=== PATIENT | female | born 1935 | race Caucasian/White ===

== ENCOUNTER 2024-08-28 18:59 | Inpatient (IN) | payer OTHER, SELFPAY ==
[2024-08-28 15:58] VITALS: BMI 27.1
[2024-08-28 16:05] VITALS: BP 131/70
[2024-08-28 16:19] LABS: Hematocrit 31.9 % (37.0-47.0); Hemoglobin 10.3 g/dL (12.0-16.0); Mean Corp Hgb Conc. 32.3 g/dL (33.0-37.0); Mean Corpuscular Hgb 27.6 pg (27.0-31.0); Mean Corpuscular Volume 85.5 fL (81.0-99.0); Red Blood Cell Count 3.73 10^6/uL (4.20-5.40); Red Cell Dist. Width 17.2 % (11.5-14.5); White Blood Cell Count 13.9 10^3/uL (4.8-10.8)
[2024-08-28 16:45] LABS: Normal RBC Morphology Yes; Platelet Count 95 10^3/uL (130-400); Platelets Checked Yes; Total Cells Counted 100
[2024-08-28 16:49] LABS: Absolute Neutrophils -Man Diff 10.4 10^3/uL (1.4-6.5); Band Neutrophils 1 % (0-3); Lymphocytes 10 % (20-51); Monocytes 14 % (2-9); Segmented Neutrophils 74 % (42-75)
[2024-08-28 16:50] LABS: Nucleated Red Blood Cells 1 (-)
[2024-08-28 16:55] LABS: ALT (SGPT) 17 U/L (0-35); AST (SGOT) 43 U/L (14-36); Albumin 3.5 g/dl (3.5-5.0); Alkaline Phosphatase 117 U/L (38-126); Blood Urea Nitrogen 20 mg/dl (7-17); Calcium 8.4 mg/dl (8.4-10.2); Carbon Dioxide 26 mmol/L (22-30); Chloride 99 mmol/L (98-107); Estimated Creatinine Clearance 40 ml/min; Glucose 113 mg/dl (70-99); Potassium 3.7 mmol/L (3.5-5.1); Sodium 137 mmol/L (135-145); Total Bilirubin 2.8 mg/dl (0.2-1.3); Total Protein 6.3 g/dl (6.3-8.2); eGFR > 60.00
--- NOTE | 2024-08-28 16:56 | ED.GENMED ---
History of Present Illness
General
Chief Complaint: Dizziness
Time Seen by Provider: 08/28/24 16:56
History of Present Illness
History of Present Illness:
TIME OF INITIAL ENCOUNTER: 5 PM
HPI: Patient presents with worsening vertigo that feels unlike prior episodes of vertigo. Is been ongoing for the last few days. She had some cough recently as well. She had a recent mole excision from her forehead with resultant facial
ecchymosis.
EXAM:
GENERAL: Well appearing in no distress
HEENT: Extensive bilateral infraorbital ecchymosis related to recent forehead procedure
CARDIOVASCULAR: No murmurs, normal heart rate, slightly irregular rhythm, No chest wall tenderness
PULMONARY: No respiratory distress, breath sounds are fairly clear but occasional rhonchi noted
ABDOMEN: Soft with no peritoneal signs, no tenderness
NEUROLOGIC: Excellent strength all extremities, slightly impaired finger-nose bilaterally
PSYCHIATRIC: Appropriate mental status, normal insight and judgement
EXTREMITIES: Nontender, no edema, moves all extremities equally
SKIN: As above
NUMBER AND COMPLEXITY OF PROBLEMS ADDRESSED AT THE ENCOUNTER
� Chronic conditions affecting care: A-fib, CHF, high blood pressure, CKD
� Acute Exacerbation and/or Progression of Chronic Illness: This is an acute problem
� Differential Diagnosis includes: Nonspecific vertigo, dehydration, infection
AMOUNT AND/OR COMPLEXITY OF DATA TO BE REVIEWED AND ANALYZED
� I performed an independent evaluation of and my interpretation is:
EKG: A-fib 75, nonspecific ST abnormality
CT: CT head negative acute
X-rays: Chest x-ray shows abnormality at left base
Laboratory Studies: White count 13.9 hemoglobin 10.3, total bili chronically elevated
Other:
� Review of other/old records: Patient was admitted last year with acute exacerbation of heart failure and was also found to have sepsis due to UTI
� Clinical information was obtained by an independent historian: None needed
� Prescriptions/Medications Considered but not given:
� Further testing considered but not performed:
RISK OF COMPLICATIONS AND/OR MORBIDITY OR MORTALITY OF PATIENT MANAGEMENT
� Social determinants of health affecting care: Lives at home with daughter
� Discussion with other providers: Hospitalist for admission
� Escalation of care including admission/observation vs risk of discharge considered: Patient presents with dizziness which is different than her chronic type of vertigo. She is in A-fib but states that she was taken off of
Coumadin by Dr. Lincoln due to ulcers.
ANY OTHER UPDATES:
6:15 PM: On reassessment she still feels horrible (however does not look that bad). White count is elevated, chest x-ray is abnormal. Will plan admission for IV antibiotics and further assessment.
Past History
Past History
ED Past Medical History: Arrthythmia (Atrial fibrillation), HTN, Hypercholesterolemia and Other (DVT, GIB, ulcerative colitis, chronic kidney disease, anemia)
ED Past Surgical History: Bowel resection
Social History
Tobacco: Non-smoker
Alcohol: None
Living: with family
Employment: Retired
Family History
Family History: Other (pancreatic cancer, CHF)
Phy Exam
Physical Exam
Physical Exam:
See HPI
Course
Orders/Labs/Results
Orders:
Orders
08/28/24 16:02
Electrocardiogram (*1) Urgent
Reason for Study: Vertigo / Dizzy
EKG- Treatment ONCE
08/28/24 16:04
CBC/With Diff [Complete Blood Count/With Diff] Urgent
Comprehensive Metabolic Panel Urgent
Manual Differential Urgent
08/28/24 16:10
CT Head W/o Iv Contrast Urgent
Comment:
Reason For Exam: dizziness
08/28/24 17:07
Urinalysis Reflex To Culture Urgent
CR Chest - 2 Views Urgent
Comment:
Reason For Exam: sob high wbc
08/28/24 18:15
Azithromycin 500 mg/250 ml [Zithromax Infusion] 500 mg in 250 ml IV NOW
CefTRIAXone [Rocephin] 1,000 mg IV NOW STA
08/28/24 18:26
Procalcitonin Routine
PCT Algorithmm Indication: Respiratory
Abnormal Lab Results
08/28/24
16:04
WBC 13.9 H 10^3/uL
(4.8-10.8)
RBC 3.73 L 10^6/uL
(4.20-5.40)
Hgb 10.3 L g/dL
(12.0-16.0)
Hct 31.9 L %
(37.0-47.0)
MCHC 32.3 L g/dL
(33.0-37.0)
RDW 17.2 H %
(11.5-14.5)
Plt Count 95 L 10^3/uL
(130-400)
Abs Neuts (Manual) 10.4 H 10^3/uL
(1.4-6.5)
Lymphocytes (Manual) 10 L %
(20-51)
Monocytes (Manual) 14 H %
(2-9)
BUN 20 H mg/dl
(7-17)
Glucose 113 H mg/dl
(70-99)
Total Bilirubin 2.8 H mg/dl
(0.2-1.3)
AST 43 H U/L
(14-36)
08/28/24 16:04
08/28/24 16:04
Vital Signs
Initial and Last Documented VS:
Initial Vital Signs
Temp
99.2 F
08/28/24 15:58
Last Documented Vital Signs
Temp Pulse Resp BP Pulse Ox
99.2 F 75 17 131/70 97
08/28/24 15:58 08/28/24 18:00 08/28/24 18:00 08/28/24 16:05 08/28/24 18:00
*Critical Care Note
Total Time (30-74mins, 75-104mins- exclusive of procedures): Not Applicable
ED Attending Note
-
Portions of this chart may have been created with voice recognition software.� Occasional wrong word or��sound alike� substitutions may have occurred due to the inherent limitations of voice recognition software.
Discharge Plan
Departure
Patient Disposition: Admit
Date of Disposition: 08/28/24
Time of Disposition: 18:19
Presentation/result/management discussed w/ accepting MD/DO: Hospitalist
Discharge Problem:
Pneumonia
Prescriptions:
No Action
mercaptopurine [Purinethol] 50 MG tablet
50 mg PO BID
simvastatin 40 MG tablet
40 mg PO QPM
acetaminophen 325 mg Tablet
650 mg PO Q8HPRN PRN (Reason: mild pain)
metoprolol succinate 100 mg Tablet Extended Release 24 Hr
100 mg PO QPM
aspirin 81 mg Tablet,Delayed Release (Dr/Ec)
81 mg PO DAILY
metoprolol succinate 25 mg Tablet Extended Release 24 Hr
50 mg PO DAILY
mesalamine 1.2 gram Tablet,Delayed Release (Dr/Ec)
1.2 g PO BID
polyethylene glycol 3350 17 gram Powder In Packet
17 g PO DAILYPRN PRN (Reason: constipation) Qty: 0 0RF
furosemide 20 mg Tablet
20 mg PO DAILY Qty: 30 0RF
amoxicillin-pot clavulanate 875-125 mg tablet
1 tab PO BID Qty: 20 0RF
simethicone 180 mg capsule
180 mg PO BID PRN (Reason: abdominal distention) Qty: 20 0RF
Referrals:
Tony Carrillo MD [Family Provider] -
Interventions
Interventions:
*Risk Screen - Suicide Last Done: 08/28/24 15:58
*General Assessment Last Done: 08/28/24 15:58
*Neglect/Abuse Screening Last Done: 08/28/24 15:58
ED- Fall Risk Assessment Last Done: 08/28/24 15:58
*ED COVID-19 Vaccine History Last Done: 08/28/24 15:58
ED- Neurological Assessment Last Done: 08/28/24 15:58
Discharge Date and Time
Print Language: BELARUSIAN
[2024-08-28 18:00] VITALS: BP 125/56
[2024-08-28] MEDS: ZITHROMAX INFUSION 250 IV (18:34)
[2024-08-28] MEDS: ROCEPHIN 1000 MG IV (18:34)
--- NOTE | 2024-08-28 18:47 | HPS.HSE ---
Family Physician
-
Family Physician: Tony Carrillo
Chief Complaint
-
SoB, cough and dizziness
History of Present Illness
89M HX chr HFpEF, Klebsiella PNA with sepsis, Prx AF , not on AC due to PUDz, chronic anemia . chr thrombocytopenia seen at ER evalaution of cough, sob and dizziness .
- Recent derm procedure on forehead with lots of facial ecchymosis
- generally feel unwell NOS
- WBC 13.9
- CXR suggests small L pleural effusion w/ atelectasis vs pneumonia,
Medical History
Past Medical History
Past Medical History: Reports Other (As per the HPI)
Past Surgical History: Reports Other
Additional Past Surgical History:
Sigmoidectomy
Social History
Tobacco: Non-smoker
Alcohol: None
Drug: None
Family History
Family History: Cancer and Other (Pneumonia)
Allergies / Home Medications
Allergies reflects when Allergies were last updated in [employer].
Home Medications with original date entered in [employer]
Allergy/Medication List:
Allergies
Allergy/AdvReac Type Severity Reaction Status Date / Time
No Known Allergies Allergy Verified 12/23/22 10:41
Home Medications
mercaptopurine 50 mg tablet (Purinethol) 50 mg PO BID Ulcerative Colitis 03/03/14
simvastatin 40 mg tablet 40 mg PO QPM High cholesterol 10/10/17
acetaminophen 325 mg tablet 650 mg PO Q8HPRN PRN mild pain 01/02/23
aspirin 81 mg tablet,delayed release 81 mg PO DAILY Blood clot prevention/tx 01/02/23
mesalamine 1.2 gram tablet,delayed release 1.2 g PO BID Ulcerative Colitis 01/02/23
metoprolol succinate 100 mg tablet,extended release 24 hr 100 mg PO QPM Heart disease/condition 01/02/23
metoprolol succinate 25 mg tablet,extended release 24 hr 50 mg PO DAILY Heart disease/condition 01/02/23
Review of Systems
-
Constitutional: Reports No Symptoms
EENT: Reports No Symptoms
Respiratory: Reports Cough and Trouble Breathing
Cardiac: Reports No Symptoms
Abdomen/GI: Reports No Symptoms
: Reports No Symptoms
Musculoskeletal: Reports No Symptoms
Skin: Reports No Symptoms
Neurological: Reports Dizzy
Endocrine: Reports No Symptoms
Hematologic/Lymphatic: Reports No Symptoms
Psych: Reports No Symptoms
Physical Exam
Vital Signs
Vital Signs
Temp Pulse Resp BP Pulse Ox
99.2 F 71 16 125/56 96
08/28/24 15:58 08/28/24 18:45 08/28/24 18:45 08/28/24 18:00 08/28/24 18:45
Physical Exam
General: Well Developed, Well Nourished and No Apparent Distress
HEENT: NormoCephalic, Moist mucous membranes, Atraumatic and Other (Recent derm procedure on forehead with lots of facial ecchymosis)
Respiratory: Clear
Cardiac: S1/S2 and Regular Rhythm; No Murmur or Rub
GI: Soft, Non Tender, Non Distended and Normal Bowel Sounds; No Organomegaly
Rectal: Deferred by Provider
Musculoskeletal: No Clubbing, No Cyanosis and No Edema
Skin: No Rash
Neuro: Nonfocal/grossly intact
Laboratory Results
-
08/28/24 16:04
08/28/24 16:04
Laboratory Results
Total Bilirubin 2.8 mg/dl (0.2-1.3) H 08/28/24 16:04
AST 43 U/L (14-36) H 08/28/24 16:04
ALT 17 U/L (0-35) 08/28/24 16:04
Alkaline Phosphatase 117 U/L (38-126) 08/28/24 16:04
Data Reviewed
-
Diagnostic Radiology: Report Reviewed by me
CT Scan: Report Reviewed by me
Lab Data: Labs Reviewed by me
Old Records: Reviewed
Impression/Plan
-
Data
WBC 13.9
Nl Cr
TB 2.8
Pending PCT
CXR suggests small L pleural effusion w/ atelectasis vs pneumonia
HCT: There are no focal or acute intracranial abnormalities. There is moderate diffuse cortical and cerebellar atrophy
Last hospitalist admission:
DATE OF ADMISSION: 02/15/2023 - DATE OF DISCHARGE: 02/20/2023
DISCHARGE DIAGNOSES:
1. Acute heart failure with preserved ejection fraction.
2. Klebsiella pneumoniae sepsis due to urinary tract infection.
3. Paroxysmal atrial fibrillation.
4. Hypokalemia.
5. Hyponatremia.
6. Acute on chronic anemia.
7. Chronic thrombocytopenia.
ASSESSMENT & PLAN
Presumed Lt basilar PNA likely CAP
Cough and SoB
Leucocytosis
HX Klebsiella Pneumoniae sepsis due to UTI
- check PCT
- agree with IV CFTX and PO Azithromycin
- Mucinex
- O2 as needed
S/P Dermatological surgery - large skin excision for skin CA ? few days ago
[place] HX Facial skin lesion - suspicious for skin CA
Recently seen by Dermatology
HX Ulcerative colitis status post colectomy/sigmoid resection
- c/w Mercaptopurine and mesalamine
Bicytopenia( Anemia , chr thrombocytopenia)
Chronic normocytic anemia Baseline hemoglobin around 9s , currently low 10s
Last colonoscopy was 2020 showing polyps and diverticulosis.
- stable
- Monitor CBC
Chronic thrombocytopenia -counts have been low since December 2022
- Possibly related to mercaptopurine
- Monitor for now.
HX chr HFpEF
02/17/23 ECHO: LVEF 65%, moderate MR, small PFO.
- c/w [employer]OM[employer]NAGER PO frusemide , Metoprolol
HX Paroxysmal atrial fibrillation not on anticoagulation due to history of GI bleed,
HX Peptic Ulcer Disease
HX DVT
-No anticoagulation at home due to history of GI bleed
Essential hypertension-Stable
-Continue home long-acting beta-yves
Hyperlipidemia
- c/w statin
DVT Px: SQH
Code: DNR confirmed by patient in the presence of RN
IP TLM
[2024-08-28 19:05] VITALS: BP 107/48
[2024-08-28 19:15] VITALS: BP 122/72; BMI 26.8
[2024-08-28 19:34] VITALS: BMI 27.1
[2024-08-28 20:00] LABS: Procalcitonin 0.06 ng/ml (0.0-0.25)
[2024-08-28 20:41] LABS: Urine Albumin Negative (Neg - Trace); Urine Bilirubin Negative (Negative); Urine Character Slightly Cloudy (Clear); Urine Color Yellow; Urine Glucose Negative (Negative); Urine Ketone Negative (Negative); Urine Leukocyte 2+ (Negative); Urine Nitrite Negative (Negative); Urine Occult Blood Negative (Negative); Urine Urobilinogen Negative (Neg - 1+)
[2024-08-28 20:47] LABS: Urine Bacteria Few (Negative); Urine Squamous Cell 26-30 /LPF (Few)
[2024-08-28 20:48] LABS: Urine Red Blood Cell 0-2 /HPF (0-2); Urine White Cell 30-40 /HPF (0-5)
[2024-08-28] MEDS: MUCINEX 600 MG PO (22:03)
[2024-08-28] MEDS: PURINETHOL 50 MG PO (22:03)
[2024-08-28] MEDS: TOPROL XL 100 MG PO (22:03)
[2024-08-28] MEDS: HEPARIN 5000 UNITS SC (22:04)
[2024-08-28 23:18] VITALS: BP 147/62
[2024-08-29] VITALS (7 sets, daily range): BP systolic 89–150; BP diastolic 47–67; PULSE 79; O2SAT 97; BMI 26.4
[2024-08-29] MEDS: TYLENOL 650 MG PO ×2 (00:07→23:11)
[2024-08-29] MEDS: MUCINEX 600 MG PO ×2 (07:52→20:08)
[2024-08-29] MEDS: PURINETHOL 50 MG PO ×2 (07:52→20:08)
[2024-08-29] MEDS: LASIX 20 MG PO (07:52)
[2024-08-29] MEDS: ZITHROMAX 500 MG PO (07:52)
[2024-08-29] MEDS: TOPROL XL 50 MG PO (07:52)
[2024-08-29] MEDS: ASPIR LOW (ENTERIC COATED) 81 MG PO (07:52)
[2024-08-29] MEDS: HEPARIN 5000 UNITS SC ×2 (07:53→20:06)
[2024-08-29 09:34] LABS: Hematocrit 32.1 % (37.0-47.0); Hemoglobin 10.2 g/dL (12.0-16.0); Mean Corp Hgb Conc. 31.8 g/dL (33.0-37.0); Mean Corpuscular Hgb 27.5 pg (27.0-31.0); Mean Corpuscular Volume 86.5 fL (81.0-99.0); Platelet Count 79 10^3/uL (130-400); Red Blood Cell Count 3.71 10^6/uL (4.20-5.40); Red Cell Dist. Width 17.4 % (11.5-14.5); White Blood Cell Count 9.9 10^3/uL (4.8-10.8)
[2024-08-29 09:49] LABS: Blood Urea Nitrogen 17 mg/dl (7-17); Calcium 8.4 mg/dl (8.4-10.2); Carbon Dioxide 27 mmol/L (22-30); Chloride 100 mmol/L (98-107); Estimated Creatinine Clearance 36 ml/min; Glucose 136 mg/dl (70-99); Potassium 3.3 mmol/L (3.5-5.1); Sodium 140 mmol/L (135-145); eGFR 53.85
[2024-08-29] MEDS: KCL 40 MEQ PO (10:34)
[2024-08-29] MEDS: ROCEPHIN 1000 MG IV (10:34)
[2024-08-29] MEDS: STERILE WATER FOR INJECTION 10 ML IV (10:34)
[2024-08-29] MEDS: VITAMIN B-12 1000 MCG PO (11:54)
--- NOTE | 2024-08-29 12:55 | PTOTSP ---
SPEECH THERAPY SWALLOW EVALUATION:
Patient exhibits grossly functional oropharyngeal swallow at this time. Patient currently admitted with left basilar pneumonia. Endorsed dysphagia symptoms including occasional coughing with ice water when taking pills, ~25 lb weight loss (pt
reported as intentional), and history of pnuemonia ~1 year ago. Patient with mildly hyponasal vocal quality, suspicious for velopharyngeal dysfunction. Patient without significant pre-disposing dysphagia risk factors. No history of ST at or
otherwise. No overt signs or symptoms of aspiration at this time. Stable respiratory status at this time (room air). Recommend Regular texture diet, thin liquids. Medications whole with liquid as best tolerated. Given mild hyponasal quality, weight
loss, and repeat pneumonia, unable to rule out dysphagia at this time. Consider instrumental assessment of swallowing (VSE) if concern for aspiration. Recommend ST to follow at the acute care level to monitor diet tolerance, monitor CXR and labs,
determine indication for VSE as warranted, and provide continued diagnostic swallow therapy as appropriate.
RECOMMEND:
1) Regular texture diet, thin liquids
2) Medications whole with liquid as best tolerated
3) General aspiration precautions
4) Consider instrumental assessment of swallowing (VSE) if concern for aspiration
4) ST to follow at the acute care level
--- NOTE | 2024-08-29 15:22 | CM ---
Met with patient and her daughter at the bedside; initial assessment completed
Pharmacy verified: [facility] @ [address] [facility], [place], [place]
Patient lives in a Bi[employer] home; her daughter lives with her; 3 steps to enter; 6 steps to living area; railings present; patient's bathroom has tub w/shower; raised toilet seat w/handrails; laundry room on the lower level
PLOF: patient reports that she is independent with personal care; does not get into the tub unless someone is present to assist; ambulates with RW always; patient manages her medication and does the cooking; daughter does the other heavy equipment rental associate
Does not drive
NO other DME
SNF stay 01/2023 @ [facility]; and past home health w/[facility]
Daughter will transport home
Bruising on face from recent procedure; had a lesion removed from forehead
Plan: Discharge dispostion to be determined pending hospital course. If Home Health is recommended, VNA is preference; as requested, will keep daughter/primary contact in the communication loop for post acute decisions
--- NOTE | 2024-08-29 16:08 | PTOTSP ---
pt currently demonstrates ability to complete simple ADLs, functional transfers, ambulation with supervision to no assistance. no acute OT needs identified at this time, will sign off.
--- NOTE | 2024-08-29 17:12 | W.PN.HOSP.TC ---
Addendum entered and electronically signed by Kailash Ivory MD 08/30/24 16:40:
I saw and evaluated the patient. I reviewed the resident�s note and agree with findings and plan as documented in the resident�s note.
Left-sided, required pneumonia -patient cough has improved, some phlegm production. Not hypoxic. Was given Rocephin and azithromycin in hospital, continue on Omnicef and azithromycin at discharge.
Thrombocytopenia/anemia- Likely from mercaptopurine use - provided for UC treatment by GI at [facility]
Mohs surg -right forehead Mohs surgery. bilateral maria t-orbital ecchymosis - no fall ,patient stated its from mohs surg?
Patient cleared to be discharged home today.
Original Note:
Today's Communication/Plan
-
Rpt CXR in am
If stable consider discharge
Assessment / Plan
Assessment / Plan
89-year-old female with cough and dizziness
Mohs surgery on face with ecchymosis around the eyes
Cardiovascular system S1-S2 appreciated
Mostly clear to auscultation
# Cough shortness of breath and left basilar pneumonia on x-ray vs atelectasis versus acute bronchitis
Check PA lateral chest x-ray tomorrow stop antibiotics if not needed
IV ceftriaxone and Zithromax
Mucolytic's
Not on any oxygen at present
Speech eval noted- No aspiration
Follow clinically
Add incentive spirometry
# Hypokalemia-replace
# Abnormal urine analysis-contaminated specimen versus true UTI-antibiotic should cover
# Recent moh's surgery on the face
# History of ulcerative colitis status post colectomy/sigmoid resection
Continue mercaptopurine and mesalamine
# Anemia and thrombocytopenia
# Chronic heart failure with preserved ejection fraction
Echo 02/17/2023-EF 65%, moderate MR, small PFO, mild concentric LVH, mild TR, pulmonary artery pressure 40 to 45 mmHg
Continue beta-yves, Lasix
# CKD stage III
# Hypertension-continue beta-blockers
# Hyperlipidemia-continue statin
# Paroxysmal atrial fibrillation-history of PVI ablation 2016. Not on anticoagulation because of GI bleed history and likely from anemia and thrombocytopenia
# Peptic ulcer disease
# Cholelithiasis
# History of DVT-not on anticoagulation
# History of diverticulitis with colon resection
# arthritis/DJD's/Osteoporosis/DJD lumbar spine
# Vertigo
# Ex-smoker
# DVT prophylaxis-heparin
# DNR
Discussed with nursing at bedside
Called patient's daughter-went to message
Called son who wanted me to talk to his I updated [id number] regarding patient's condition. Also gave a heads up that she may be discharged as early as tomorrow
Anticipated Discharge: Within 24 hours
Subjective/Interval History
-
Date of Service: August 29, 2024
Objective Data
-
Labs:
Laboratory Results
08/29/24
08:58
WBC 9.9
Hgb 10.2 L
Hct 32.1 L
Plt Count 79 L
Sodium 140
Potassium 3.3 L
Chloride 100
Carbon Dioxide 27
BUN 17
Creatinine 1.0
Glucose 136 H
Calcium 8.4
Vital Signs:
Vital Signs
Temp Pulse Resp BP Pulse Ox
98.0 F 79 16 98/67 97
08/29/24 15:44 08/29/24 15:44 08/29/24 15:44 08/29/24 15:44 08/29/24 15:44
I&O
08/28/24 08/29/24 08/30/24
06:59 06:59 06:59
Intake Total 240 / 240
Output Total 100 / 100
Balance 140 / 140
[2024-08-29] MEDS: TOPROL XL 100 MG PO (18:10)
[2024-08-29] MEDS: LIPITOR 20 MG PO (18:14)
[2024-08-30 03:00] VITALS: BP 135/58
[2024-08-30 06:00] VITALS: BMI 26.8
--- NOTE | 2024-08-30 07:38 | W.PN.HOSP.TC ---
Today's Communication/Plan
-
Assessment / Plan
Assessment / Plan
Ms. Fara Abraham is an 89yoF h HFpEF (60-65%), paroxysmal afib, HTN, HLD, CKD stage 3b admitted 08/28 for pneumonia.
Cough shortness of breath and left basilar pneumonia on x-ray vs atelectasis vs acute bronchitis
- Check PA lateral chest x-ray tomorrow stop antibiotics if not needed
- IV ceftriaxone and Zithromax
- Mucolytics
- Speech eval - no signs of aspiration
- incentive spirometer
- transition to PO abx for dc - 7 day course total for immunocompromised state
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
- immature cells on cbc
- known side effect of mercaptopurine for UC
- monitor bone marrow suppression outpatient
Hypokalemia
- replete
CKD stage III
Abnormal urine analysis
- contaminated specimen
Recent mohs surgery on the face
History of ulcerative colitis status post colectomy/sigmoid resection
Peptic ulcer disease
Diverticulitis s/p resection
Cholelithiasis
- Continue mercaptopurine and mesalamine
- not tolerating OAC
Anemia
thrombocytopenia
- stable
- monitor CBC
Chronic heart failure with preserved ejection fraction
- Echo 02/17/2023-EF 60-65%, moderate MR, small PFO, mild concentric LVH, mild TR, pulmonary artery pressure 40 to 45 mmHg
- Continue beta-yves, Lasix
HTN / HLD
- cont beta blockers, statin
Paroxysmal atrial fibrillation
- hx PVI ablation 2015
- Not on anticoagulation because of GI bleed history and likely from anemia and thrombocytopenia
arthritis/DJD's/Osteoporosis/DJD lumbar spine
Vertigo
- fall precautions
DVT prophylaxis
- Hx DVT
- heparin
Code status: DNR
Diet: cholesterol lowering
Anticipated Discharge: Today
Subjective/Interval History
-
Date of Service: August 30, 2024
Ms. Fara Abraham is an 89yoF pmh HFpEF (60-65%), paroxysmal afib, HTN, HLD, CKD stage 3b admitted 08/28 for pneumonia. Overall, feels better. Cough improving, productive of a clear mucus. No SOB, fever, chills.
Objective Data
-
Labs:
Laboratory Results
08/30/24
06:00
WBC Pending
Hgb Pending
Hct Pending
Plt Count Pending
Sodium Pending
Potassium Pending
Chloride Pending
Carbon Dioxide Pending
BUN Pending
Creatinine Pending
Glucose Pending
Calcium Pending
Total Bilirubin Pending
AST Pending
ALT Pending
Alkaline Phosphatase Pending
Vital Signs:
Vital Signs
Temp Pulse Resp BP Pulse Ox
97.8 F 60 18 135/58 96
08/30/24 03:00 08/30/24 03:00 08/30/24 03:00 08/30/24 03:00 08/30/24 03:00
I&O
08/29/24 08/30/24 08/31/24
06:59 06:59 06:59
Intake Total 240 / 240 1440 / 1440
Output Total 100 / 100
Balance 140 / 140 1440 / 1440
Review of Systems
-
History Source: Patient
All other systems: Reviewed and negative
Constitutional: Reports No Symptoms
EENT: Reports No Symptoms Reported
Respiratory: Reports Cough; Denies Hemoptysis or Trouble Breathing
Cardiac: Reports No Symptoms
Abdomen/GI: Reports No Symptoms
Genitourinary: Reports No Symptoms
Neuro: Reports No Symptoms
Hematologic / Lymphatic: Reports Bleeding and Bruising
Physical Exam
-
General: Well Developed, Well Nourished and Comfortable
HEENT: Normocephalic, Moist Mucous Membranes, Anicteric and Other (recent mohs, covered in bandage. Bruising around eyes, reportedly due to the mohs procedure.)
Respiratory: Wheezes and Non Labored Respirations
Cardiac: Regular Rhythm and S1/S2
GI: Soft, Nontender, Nondistended, Normal Bowel Sounds and No Hepatosplenomegaly
Genito-urinary: No Costovertebral Tender
Musculoskeletal: No Clubbing, No Cyanosis and No Edema
Skin: Warm and Dry
Neuro: Awake and AO x 3
Psych: Calm
[2024-08-30 08:22] VITALS: BP 162/61
[2024-08-30] MEDS: ZITHROMAX 500 MG PO (08:51)
[2024-08-30] MEDS: ASPIR LOW (ENTERIC COATED) 81 MG PO (08:51)
[2024-08-30] MEDS: MUCINEX 600 MG PO (08:51)
[2024-08-30] MEDS: TOPROL XL 50 MG PO (08:51)
[2024-08-30] MEDS: PURINETHOL 50 MG PO (08:51)
[2024-08-30] MEDS: HEPARIN 5000 UNITS SC (08:52)
[2024-08-30 09:27] LABS: Hematocrit 35.9 % (37.0-47.0); Hemoglobin 11.2 g/dL (12.0-16.0); Mean Corp Hgb Conc. 31.2 g/dL (33.0-37.0); Mean Corpuscular Hgb 28.9 pg (27.0-31.0); Mean Corpuscular Volume 92.5 fL (81.0-99.0); Red Blood Cell Count 3.88 10^6/uL (4.20-5.40); Red Cell Dist. Width 17.6 % (11.5-14.5); White Blood Cell Count 8.1 10^3/uL (4.8-10.8)
[2024-08-30 09:56] LABS: ALT (SGPT) 15 U/L (0-35); AST (SGOT) 36 U/L (14-36); Albumin 3.4 g/dl (3.5-5.0); Alkaline Phosphatase 110 U/L (38-126); Blood Urea Nitrogen 20 mg/dl (7-17); Calcium 8.8 mg/dl (8.4-10.2); Carbon Dioxide 29 mmol/L (22-30); Chloride 101 mmol/L (98-107); Estimated Creatinine Clearance 36 ml/min; Glucose 96 mg/dl (70-99); Magnesium 1.9 mg/dl (1.6-2.3); Potassium 4.1 mmol/L (3.5-5.1); Sodium 141 mmol/L (135-145); Total Bilirubin 1.6 mg/dl (0.2-1.3); Total Protein 6.3 g/dl (6.3-8.2); eGFR 53.85
[2024-08-30 10:19] VITALS: BP 159/60; PULSE 73; O2SAT 98
[2024-08-30] MEDS: LASIX 20 MG PO (10:27)
[2024-08-30] MEDS: ROCEPHIN 1000 MG IV (10:27)
[2024-08-30] MEDS: STERILE WATER FOR INJECTION 10 ML IV (10:27)
[2024-08-30] MEDS: FLUSH (NSS) 1 FLUSH IV (10:28)
[2024-08-30 10:46] LABS: Absolute Neutrophils -Man Diff 5.3 10^3/uL (1.4-6.5); Anisocytosis 1+; Band Neutrophils 2 % (0-3); Hypochromasia 1+; Lymphocytes 12 % (20-51); Metamyelocytes 4 % (-); Monocytes 17 % (2-9); Myelocytes 1 % (-); Normal RBC Morphology No; Platelets Checked Yes; Polychromasia 1+; Segmented Neutrophils 64 % (42-75); Stomatocytes 1+; Total Cells Counted 100
[2024-08-30 11:48] VITALS: BP 122/84
[2024-08-30] MEDS: VITAMIN B-12 1000 MCG PO (12:30)
--- NOTE | 2024-08-30 12:36 | CM ---
CM contacted Fara's daughter to confirm plan for transport at discharge. Things have changed, and pt's children will not be available for transportation home until 5PM or later. Updated Dr. Bedoya's [facility]ident of [facility].
[facility] was offered, however Fara feels she will be able to return home with no services. She is aware if she gets home and changes her mind that she can contact her PCP to order services.
Plan: Discharge to home with no needs.
[2024-08-30 15:56] VITALS: BP 135/64
--- NOTE | 2024-08-30 17:05 | W.DCSUMMARY ---
Discharge Summary
Discharge Data
Date of Admission: 08/28/24
Date of Discharge: 08/30/24
-
Pending Results: No
Hospital Course
Discharging Physician : Dr. Kailash Ivory, Dr. Vicky Pickett
Disposition : home with home care
Primary care physician : Dr. Tony Carrillo
Principal Discharge diagnosis : Community acquired pneumonia
Chronic Discharge diagnosis : HFpEF, paroxysmal afib, HTN, HLD, CKD stage 3b
Hospital Course : Ms. Fara Abraham is an 89yoF h HFpEF (60-65%), paroxysmal afib, HTN, HLD, CKD stage 3b admitted 08/28 for pneumonia. Arrived to ED w worsening vertigo that is unlike other episodes of vertigo. Recent mole excision from forehead
which resulted in periorbital ecchymosis. Head CT ruled out any acute intracranial abnormalities. CXR concerning for atelectasis vs pneumonia. Treated with ceftriaxone and azithromycin. Urinalysis likely contaminated, but any UTI would be covered
with pneumonia treatment. Pt feels improved, is hemodynamically stable, and has been afebrile this hospitalization.
Important imaging findings :
08/[address]: no focal or acute intracranial abnormalities. Moderate diffuse cortical and cerebellar atrophy
08/28 CXR: Small left pleural effusion with underlying atelectasis versus pneumonia.
08/30 CXR: Small left pleural effusion, probably slightly improved. Parenchymal opacity within the left lower lung, also slightly improved. Residual parenchymal opacity is present, with main differential considerations of pneumonia and/or
atelectasis.
Procedure findings : n/a
Discharge Plan
-
Patient Disposition: Home with Home Care
Discharge Diagnosis/Procedures: Community acquired pneumonia
Condition: Fair
Diet: Regular
Activity: As tolerated
Driving Restrictions: As prior to admission
Bathing Restrictions: OK to Shower
Other Services: VN and PT
Referrals:
Tony Carrillo MD [Family Provider] - in one week
Prescriptions:
New
cefdinir 300 mg capsule
300 mg PO BID 4 Days Qty: 8 0RF
azithromycin 250 mg tablet
250 mg PO DAILY 4 Days Qty: 4 0RF
Continued
mercaptopurine [Purinethol] 50 MG tablet
50 mg PO BID
simvastatin 40 MG tablet
40 mg PO QPM
acetaminophen 325 mg Tablet
650 mg PO Q8HPRN PRN (Reason: mild pain)
metoprolol succinate 100 mg Tablet Extended Release 24 Hr
100 mg PO QPM
aspirin 81 mg Tablet,Delayed Release (Dr/Ec)
81 mg PO DAILY
metoprolol succinate 25 mg Tablet Extended Release 24 Hr
50 mg PO DAILY
mesalamine 1.2 gram Tablet,Delayed Release (Dr/Ec)
1.2 g PO BID
furosemide 20 mg Tablet
20 mg PO DAILY Qty: 30 0RF
cyanocobalamin (vitamin B-12) 1,000 mcg Tablet
1,000 mcg PO DAILY@1200
Discharge Orders:
Discharge Patient (As Directed); Ordered 08/30/24
Ordered By: Kailash Ivory
Discharge Date and Time
Discharge Date/Time: 08/30/24 16:30
Print Language: [id number]
== END 2024-08-30 16:30 | disposition home or self-care (01) | DRG 194 ==
LOC: 4 EAST ACU 18:59
PROVIDERS: Emergency Medicine; Hospitalist; ADMITTING PHYSICIAN Internal Medicine; ATTENDING PHYSICIAN Hospitalist; EMERGENCY PHYSICIAN Emergency Medicine; FAMILY PHYSICIAN Family Medicine
DX: J18.9 Pneumonia, unspecified organism (principal); E87.1 Hypo-osmolality and hyponatremia; I13.0 Hypertensive heart and chronic kidney disease with heart failure and stage 1 through stage 4 chronic kidney disease, or unspecified chronic kidney disease; N39.0 Urinary tract infection, site not specified; J98.11 Atelectasis; I50.32 Chronic diastolic (congestive) heart failure; I48.0 Paroxysmal atrial fibrillation; E87.6 Hypokalemia; D64.9 Anemia, unspecified; D69.6 Thrombocytopenia, unspecified; Z66 Do not resuscitate; N18.30 Chronic kidney disease, stage 3 unspecified
CPT/HCPCS: 70450; 71046; 80048; 80053; 81003; 81015; 83735; 84145; 85025; 85027; 87086; 92610; 93005; 96365; 96366; 96375; 97162; 97166; 97530; 99285

== ENCOUNTER 2024-12-04 18:08 | Inpatient (IN) | payer OTHER, SELFPAY ==
[2024-12-04] VITALS (12 sets, daily range): BP systolic 107–163; BP diastolic 54–92; BMI 27.0; BMI 25.2
[2024-12-04 11:20] LABS: Hematocrit 30.6 % (37.0-47.0); Hemoglobin 9.4 g/dL (12.0-16.0); Mean Corp Hgb Conc. 30.7 g/dL (33.0-37.0); Mean Corpuscular Hgb 29.8 pg (27.0-31.0); Mean Corpuscular Volume 97.1 fL (81.0-99.0); Red Blood Cell Count 3.15 10^6/uL (4.20-5.40); Red Cell Dist. Width 20.5 % (11.5-14.5); White Blood Cell Count 8.6 10^3/uL (4.8-10.8)
[2024-12-04 11:36] LABS: ALT (SGPT) 17 U/L (0-35); AST (SGOT) 54 U/L (14-36); Albumin 3.5 g/dl (3.5-5.0); Alkaline Phosphatase 101 U/L (38-126); Blood Urea Nitrogen 23 mg/dl (7-17); Calcium 8.4 mg/dl (8.4-10.2); Carbon Dioxide 25 mmol/L (22-30); Chloride 105 mmol/L (98-107); Glucose 104 mg/dl (70-99); Potassium 4.7 mmol/L (3.5-5.1); Sodium 139 mmol/L (135-145); Total Bilirubin 2.9 mg/dl (0.2-1.3); Total Protein 6.6 g/dl (6.3-8.2); eGFR 53.85
[2024-12-04 11:52] LABS: Mean Platelet Volume 11.6 fL (7.4-10.4); Platelet Count 86 10^3/uL (130-400)
--- NOTE | 2024-12-04 12:23 | ED.GENMED ---
History of Present Illness
<Nicole Clemens PA-C - Last Filed: 12/04/24 20:47>
General
Chief Complaint: Heart Rate Problem
Source: patient
Exam Limitations: none
Time Seen by Provider: 12/04/24 12:04
Nursing documentation reviewed up to this point in time: agreed with
History of Present Illness
History of Present Illness:
Patient is an 89-year-old female with history atrial fibrillation, CHF, hypertension presenting to the emergency department for evaluation of worsening shortness of breath and cough. Patient reports noticing worsening dyspnea on exertion over the
past few days and her monitor at home told her that she was in A-fib. She does report intermittent cough over the past 2 months after a hospital admission for pneumonia. She has had a few instances over the past few days for there was streaks of
bright red blood in her phlegm which concerned her.
Patient denies any associated chest pain, severe back pain. No fevers or chills. No sick contacts. No recent weight gain.
Patient states that she is intermittently in atrial fibrillation. No blood thinners currently.
Past History
<Nicole Clemens PA-C - Last Filed: 12/04/24 20:47>
Past History
ED Past Medical History: Arrthythmia (Atrial fibrillation), HTN, Hypercholesterolemia and Other (DVT, GIB, ulcerative colitis, chronic kidney disease, anemia)
ED Past Surgical History: Bowel resection
Social History
Tobacco: Non-smoker
Alcohol: None
Living: with family
Employment: Retired
Family History
Family History: Other (pancreatic cancer, CHF)
Review of Systems
<Nicole Clemens PA-C - Last Filed: 12/04/24 20:47>
Review of Systems
Allergies reviewed?: Yes
All Other Systems: ROS reviewed and negative except as documented in HPI and ROS
Phy Exam
<Nicole Clemens PA-C - Last Filed: 12/04/24 20:47>
Physical Exam
Physical Exam:
Vitals: Mildly hypertensive, otherwise stable vital signs. Afebrile
General: Patient is well appearing, no acute distress. Nontoxic appearing
Skin: Warm and dry, no rashes or lesions
Head: Normocephalic, atraumatic
Eyes: Sclera nonicteric. EOMs intact. No nystagmus.
Throat: Protecting airway
Neck: Normal ROM, no cervical spine tenderness, no meningismus
Cardiac: Regular rate, irregular rhythm, no murmurs.
Pulm: O2 saturation 98 on room air. No apparent respiratory distress. Decreased breath sounds at left base.
Abdomen: Abdomen soft. No abdominal tenderness.
Extremities: No evidence of cyanosis or edema. Palpable DP pulses bilaterally
Neuro: AAOx3. Grossly intact.
Psychiatric: Normal affect.
Course
<Nicole Clemens PA-C - Last Filed: 12/04/24 20:47>
Orders/Labs/Results
Orders:
Orders
12/04/24 Breakfast
Cholesterol Lowering
At Your Request: Limited Participation
Fluid Restriction: 1200 mL/day (40 oz)
Cholesterol Lowering: Sodium, 2 Gram
12/04/24 10:46
Electrocardiogram (*1) Urgent
Reason for Study: Atrial Fibrillation
EKG- Treatment ONCE
12/04/24 10:48
Chest [CR Chest - 2 Views ] Urgent
Comment:
Reason For Exam: trouble breathing
12/04/24 11:00
CMP [Comprehensive Metabolic Panel] Urgent
Complete Blood Count/With Diff Urgent
Manual Differential Urgent
12/04/24 12:25
COVID-19 Antigen Urgent
Source: Nasal Swab
NT-proBNP Urgent
Troponin I Urgent
Influenza A+B Rapid Molecular Urgent
JES Source: Nasal Swab
Specimen Description:
12/04/24 14:02
Furosemide [Lasix] 40 mg IV NOW STA
12/04/24 17:35
Admit/Transfer Patient As Directed
Co-Sign Provider:
Level of Care: Inpatient admission
Assign to:: Telemetry
Physician / Group: lourdes
Diagnosis: pleureal effusion/CHF
Reason for Telemetry: Arrhythmia
Date to Stop Telemetry: 12/07/24
Time to Stop Telemetry: 11:00
Reason for Hospitalization: pleural effusion
CHF
Expected length of stay greater than two midnights?: Yes
ELOS- Estimated Length of Stay in days: 3
I certify the patient meets the requirements for IP care: Yes
PRN Pain Medication Management As Directed
May give lesser potent ordered pain med per pt: Yes
preference::
Protocol:: Medication orders for pain may be administered in a
manner that supports deferring to patient preference
when the pt is:
- Requesting an ordered lesser potent pain medication.
Least to most potent pain medications are defined
as: acetaminophen < NSAID < tramadol < opioids
(morphine, oxycodone, hydromorphone).
- Requesting a lesser dose of the same medication IF
ORDERED.
- Requesting a less intrusive route of administration
if both routes are prescribed by the provider (PO <
IV).
12/04/24 17:36
Code Status As Directed
Resuscitation Status: Do not resuscitate
Reached after discussion with pt or family/Healthcare POA: Yes
12/04/24 17:37
DNR Bracelet Application ONCE
12/04/24 19:22
Echo 2D MMode Color/Doppler Routine
Reason for Study: heart failure
CARDIOLOGY CONSULT Routine
Consulting Provider: Aidee Anthony
Was physician already notified: Yes
HF DIETARY CONSULT Routine
HF EDUCATOR CONSULT Routine
Comment:
IRAD CONSULT Routine
Consulting Provider: René Blackwell
Was physician already notified: Yes
Reason for Consult/Procedure: thoracentesis
Acknowledgement that appropriate orders are entered: Yes
Acid Fast Culture & Smear Routine
JES Source: Pleural Fluid
Specimen Description:
Comment: post procedure
Body Fluid Amylase Routine
Fluid Source: Pleural
Body Fluid Cell Count Routine
What is the Body Fluid: pleural fluid
Comment: post procedure
Body Fluid Glucose Routine
Fluid Source: Pleural
Body Fluid LDH Routine
Fluid Source: Pleural
Body Fluid Protein Routine
Fluid Source: Pleural
Body Fluid Triglycerides Routine
Fluid Source: Pleural
Body Fluid pH Routine
Fluid Source: Pleural
Glucose Routine
Hematocrit Routine
LDH Routine
Comment: post procedure, add on to morning labs if already drawn
Total Protein Routine
Comment: post procedure, add on to morning labs if already drawn
Fluid Culture with Gram Stain Routine
JES Source: Pleural Fluid
Specimen Description:
Comment: post procedure
Fungus Culture Routine
JES Source: Pleural Fluid
Specimen Description:
Fungus Smear Routine
JES Source: Pleural Fluid
Specimen Description:
Gram Stain Routine
JES Source: Pleural Fluid
Specimen Description:
Comment: POST PROCEDURE
Activity As Directed
Activity Level: As Tolerated
Intake/ Output As Directed
Frequency: Per unit guidelines
Patient Education As Directed
Type: CHF folder
Comment: give on admission. Document in Interdisciplinary Education record
Sleep Apnea Assessment by RN As Directed
Comment:
Physician Instructions:
Vital Signs As Directed
Frequency: Other
Additional Instructions:: Q12 or per unit guidelines if more frequent.
Weight As Directed
Frequency: Daily
Type of Scale: Standing Scale
Comment: Daily morning weight. If unable to stand, use balanced bed scale.
Weight As Directed
Frequency: Once
Type of Scale: Standing Scale
Comment: Upon Admission. If unable to stand, use balanced bed scale.
IRAD Cytology Routine
Source: Pleural Fluid, Left
Clinical Impression: pleureal effusion
Pulse Ox/cont/shift [RESP] Routine
Quantity: 1
Special Instructions: Daily pulse oximetry at rest. If greater than 92% at rest also obtain pulse oximetry
while ambulating as tolerated.
Ot Eval And Treat Routine
Pt Eval And Treat Routine
Activity Level: As Tolerated
DX Deep Vein Thrombosis Video Routine
12/04/24 20:00
Heparin 5,000 units SC Q12
Mercaptopurine [Purinethol] 50 mg PO BID
Mesalamine Delayed Release [Asacol, Delzicol Dr] 1,200 mg PO BID
Metoprolol Xl [Toprol Xl] 100 mg PO QPM
12/04/24 20:02
Troponin I Q6H
Comment: at admission & every 6 hours x 2 (3 total), ECG to be done with each level
12/04/24 22:00
Atorvastatin [Lipitor] 20 mg PO HS
12/05/24 01:22
Troponin I Q6H
Comment: at admission & every 6 hours x 2 (3 total), ECG to be done with each level
12/05/24 06:00
Cardiovascular Evaluation IN AM
Complete Blood Count/No Diff IN AM
TSH Reflex To Free T4 IN AM
12/05/24 08:00
Aspirin Low Dose EC [Aspir Low (Enteric Coated)] 81 mg PO DAILY
Furosemide [Lasix] 40 mg IV DAILY
Metoprolol Xl [Toprol Xl] 50 mg PO DAILY
12/06/24 06:00
Complete Blood Count/No Diff IN AM
12/07/24 06:00
Complete Blood Count/No Diff IN AM
12/07/24 11:00
DC Protocol for Telemetry ONCE
Abnormal Lab Results
12/04/24 12/04/24
11:00 12:25
RBC 3.15 L 10^6/uL
(4.20-5.40)
Hgb 9.4 L g/dL
(12.0-16.0)
Hct 30.6 L %
(37.0-47.0)
MCHC 30.7 L g/dL
(33.0-37.0)
RDW 20.5 H %
(11.5-14.5)
Plt Count 86 L 10^3/uL
(130-400)
MPV 11.6 H fL
(7.4-10.4)
Segmented Neutrophils 32 L %
(42-75)
Band Neutrophils 4 H %
(0-3)
Lymphocytes (Manual) 13 L %
(20-51)
Monocytes (Manual) 40 H %
(2-9)
BUN 23 H mg/dl
(7-17)
Glucose 104 H mg/dl
(70-99)
Total Bilirubin 2.9 H mg/dl
(0.2-1.3)
AST 54 H U/L
(14-36)
Troponin I 0.048 H* ng/ml
12/04/24 11:00
12/04/24 11:00
Vital Signs
Initial and Last Documented VS:
Initial Vital Signs
Temp Pulse Resp BP Pulse Ox
97.8 F 64 16 154/75 98
12/04/24 10:44 12/04/24 10:44 12/04/24 10:44 12/04/24 10:44 12/04/24 10:44
Last Documented Vital Signs
Temp Pulse Resp BP Pulse Ox
97.4 F 82 20 163/78 98
12/04/24 20:32 12/04/24 20:32 12/04/24 20:32 12/04/24 20:32 12/04/24 20:32
<Malorie Avendano, DO - Last Filed: 12/04/24 15:15>
Orders/Labs/Results
Orders:
Orders
12/04/24 Breakfast
Cholesterol Lowering
At Your Request: Limited Participation
Fluid Restriction: 1200 mL/day (40 oz)
Cholesterol Lowering: Sodium, 2 Gram
12/04/24 10:46
Electrocardiogram (*1) Urgent
Reason for Study: Atrial Fibrillation
EKG- Treatment ONCE
12/04/24 10:48
Chest [CR Chest - 2 Views ] Urgent
Comment:
Reason For Exam: trouble breathing
12/04/24 11:00
CMP [Comprehensive Metabolic Panel] Urgent
Complete Blood Count/With Diff Urgent
Manual Differential Urgent
12/04/24 12:25
COVID-19 Antigen Urgent
Source: Nasal Swab
NT-proBNP Urgent
Troponin I Urgent
Influenza A+B Rapid Molecular Urgent
JES Source: Nasal Swab
Specimen Description:
12/04/24 14:02
Furosemide [Lasix] 40 mg IV NOW STA
12/04/24 17:35
Admit/Transfer Patient As Directed
Co-Sign Provider:
Level of Care: Inpatient admission
Assign to:: Telemetry
Physician / Group: lourdes
Diagnosis: pleureal effusion/CHF
Reason for Telemetry: Arrhythmia
Date to Stop Telemetry: 12/07/24
Time to Stop Telemetry: 11:00
Reason for Hospitalization: pleural effusion
CHF
Expected length of stay greater than two midnights?: Yes
ELOS- Estimated Length of Stay in days: 3
I certify the patient meets the requirements for IP care: Yes
PRN Pain Medication Management As Directed
May give lesser potent ordered pain med per pt: Yes
preference::
Protocol:: Medication orders for pain may be administered in a
manner that supports deferring to patient preference
when the pt is:
- Requesting an ordered lesser potent pain medication.
Least to most potent pain medications are defined
as: acetaminophen < NSAID < tramadol < opioids
(morphine, oxycodone, hydromorphone).
- Requesting a lesser dose of the same medication IF
ORDERED.
- Requesting a less intrusive route of administration
if both routes are prescribed by the provider (PO <
IV).
12/04/24 17:36
Code Status As Directed
Resuscitation Status: Do not resuscitate
Reached after discussion with pt or family/Healthcare POA: Yes
12/04/24 17:37
DNR Bracelet Application ONCE
12/04/24 19:22
Echo 2D MMode Color/Doppler Routine
Reason for Study: heart failure
CARDIOLOGY CONSULT Routine
Consulting Provider: Aidee Anthony
Was physician already notified: Yes
HF DIETARY CONSULT Routine
HF EDUCATOR CONSULT Routine
Comment:
IRAD CONSULT Routine
Consulting Provider: René Blackwell
Was physician already notified: Yes
Reason for Consult/Procedure: thoracentesis
Acknowledgement that appropriate orders are entered: Yes
Acid Fast Culture & Smear Routine
JES Source: Pleural Fluid
Specimen Description:
Comment: post procedure
Body Fluid Amylase Routine
Fluid Source: Pleural
Body Fluid Cell Count Routine
What is the Body Fluid: pleural fluid
Comment: post procedure
Body Fluid Glucose Routine
Fluid Source: Pleural
Body Fluid LDH Routine
Fluid Source: Pleural
Body Fluid Protein Routine
Fluid Source: Pleural
Body Fluid Triglycerides Routine
Fluid Source: Pleural
Body Fluid pH Routine
Fluid Source: Pleural
Glucose Routine
Hematocrit Routine
LDH Routine
Comment: post procedure, add on to morning labs if already drawn
Total Protein Routine
Comment: post procedure, add on to morning labs if already drawn
Fluid Culture with Gram Stain Routine
JES Source: Pleural Fluid
Specimen Description:
Comment: post procedure
Fungus Culture Routine
JES Source: Pleural Fluid
Specimen Description:
Fungus Smear Routine
JES Source: Pleural Fluid
Specimen Description:
Gram Stain Routine
JES Source: Pleural Fluid
Specimen Description:
Comment: POST PROCEDURE
Activity As Directed
Activity Level: As Tolerated
Intake/ Output As Directed
Frequency: Per unit guidelines
Patient Education As Directed
Type: CHF folder
Comment: give on admission. Document in Interdisciplinary Education record
Sleep Apnea Assessment by RN As Directed
Comment:
Physician Instructions:
Vital Signs As Directed
Frequency: Other
Additional Instructions:: Q12 or per unit guidelines if more frequent.
Weight As Directed
Frequency: Daily
Type of Scale: Standing Scale
Comment: Daily morning weight. If unable to stand, use balanced bed scale.
Weight As Directed
Frequency: Once
Type of Scale: Standing Scale
Comment: Upon Admission. If unable to stand, use balanced bed scale.
IRAD Cytology Routine
Source: Pleural Fluid, Left
Clinical Impression: pleureal effusion
Pulse Ox/cont/shift [RESP] Routine
Quantity: 1
Special Instructions: Daily pulse oximetry at rest. If greater than 92% at rest also obtain pulse oximetry
while ambulating as tolerated.
Ot Eval And Treat Routine
Pt Eval And Treat Routine
Activity Level: As Tolerated
DX Deep Vein Thrombosis Video Routine
12/04/24 20:00
Heparin 5,000 units SC Q12
Mercaptopurine [Purinethol] 50 mg PO BID
Mesalamine Delayed Release [Asacol, Delzicol Dr] 1,200 mg PO BID
Metoprolol Xl [Toprol Xl] 100 mg PO QPM
12/04/24 20:02
Troponin I Q6H
Comment: at admission & every 6 hours x 2 (3 total), ECG to be done with each level
12/04/24 22:00
Atorvastatin [Lipitor] 20 mg PO HS
12/05/24 01:22
Troponin I Q6H
Comment: at admission & every 6 hours x 2 (3 total), ECG to be done with each level
12/05/24 06:00
Cardiovascular Evaluation IN AM
Complete Blood Count/No Diff IN AM
TSH Reflex To Free T4 IN AM
12/05/24 08:00
Aspirin Low Dose EC [Aspir Low (Enteric Coated)] 81 mg PO DAILY
Furosemide [Lasix] 40 mg IV DAILY
Metoprolol Xl [Toprol Xl] 50 mg PO DAILY
12/06/24 06:00
Complete Blood Count/No Diff IN AM
12/07/24 06:00
Complete Blood Count/No Diff IN AM
12/07/24 11:00
DC Protocol for Telemetry ONCE
Abnormal Lab Results
12/04/24 12/04/24
11:00 12:25
RBC 3.15 L 10^6/uL
(4.20-5.40)
Hgb 9.4 L g/dL
(12.0-16.0)
Hct 30.6 L %
(37.0-47.0)
MCHC 30.7 L g/dL
(33.0-37.0)
RDW 20.5 H %
(11.5-14.5)
Plt Count 86 L 10^3/uL
(130-400)
MPV 11.6 H fL
(7.4-10.4)
Segmented Neutrophils 32 L %
(42-75)
Band Neutrophils 4 H %
(0-3)
Lymphocytes (Manual) 13 L %
(20-51)
Monocytes (Manual) 40 H %
(2-9)
BUN 23 H mg/dl
(7-17)
Glucose 104 H mg/dl
(70-99)
Total Bilirubin 2.9 H mg/dl
(0.2-1.3)
AST 54 H U/L
(14-36)
Troponin I 0.048 H* ng/ml
12/04/24 11:00
12/04/24 11:00
Vital Signs
Initial and Last Documented VS:
Initial Vital Signs
Temp Pulse Resp BP Pulse Ox
97.8 F 64 16 154/75 98
12/04/24 10:44 12/04/24 10:44 12/04/24 10:44 12/04/24 10:44 12/04/24 10:44
Last Documented Vital Signs
Temp Pulse Resp BP Pulse Ox
97.4 F 82 20 163/78 98
12/04/24 20:32 12/04/24 20:32 12/04/24 20:32 12/04/24 20:32 12/04/24 20:32
<Nicole Clemens PA-C - Last Filed: 12/04/24 20:47>
MDM/Problems Addressed
Differential Diagnosis Includes:
Not limited to: Atrial fibrillation, bronchitis, pneumonia, acute CHF exacerbation, pleural effusion, acute coronary syndrome, etc.
MDM/Problems Addressed:
89-year-old female with history as documented presenting with worsening dyspnea on exertion and cough over the past few days. No fevers or chest pain. Mildly hypertensive, otherwise stable vital signs stable on arrival. Physical exam as above.
Patient does appear to be going in and out of A-fib while in the room. EKG demonstrates rate controlled atrial fibrillation, otherwise nonischemic. She does appear dyspneic when sitting up in bed. Differential broad although considerations
include possibly symptomatic A-fib vs CHF vs pleural effusion vs viral infection. Patient denies any chest pain�lower suspicion for ACS. Do not suspect PE. Will check labs, troponin, BNP, chest x-ray, and viral swabs.
Update: Labs reviewed. Anemia and thrombocytopenia noted which appear chronic for patient. Mild troponin elevation to 0.048�which again appears chronic. BNP of 1810. Viral swabs negative. Chest x-ray does show a moderate left pleural effusion.
Suspect pleural effusion likely secondary to fluid overload. Given patient is afebrile with no leukocytosis - much lower suspicion for infectious source. Given patient's symptomatic dyspnea and pleural effusion�will give IV Lasix and admit to
hospitalist for further evaluation/management. Patient remains in rate controlled atrial fibrillation. Patient not currently anticoagulated as per review of history has had history of significant GI bleed on Coumadin. Will continue to hold
anticoagulation for now. Patient accepted to hospital service in stable condition
Chronic conditions affecting care:
Hypertension
Acute Exacerbation and/or Progression of Chronic Illness:
Acutely hypertensive
<Nicole Clemens PA-C - Last Filed: 12/04/24 20:47>
*Radiology
Radiology exam reviewed: preliminary read by ED provider (Chest x-ray reviewed by nh-left pleural effusion) and radiology read reviewed (Left pleural effusion)
*Pulse Oximetry
Patient hypoxic: no
*EKG
Interpreted by ED Provider?: Yes
EKG Intrepretation Date: 12/04/24
Interpretation: abnormal
Comparison EKG: changes noted
Heart Rate: 66
Rate: normal
Rhythm: a-fib
[place]: normal axis
QRS Pattern: low voltage
Ischemia: non-specific ST changes
*Pig Farmer Interpretation
Rate: normal
Interpretation: abnormal
Heart Rate: 58
Rhythm: a-fib
*Critical Care Note
Total Time (30-74mins, 75-104mins- exclusive of procedures): Not Applicable
<Nicole Clemens PA-C - Last Filed: 12/04/24 20:47>
Patient Management
Discussion with other providers: Hospitalist
Escalation/DeEscalation of care consider admission/obs:
Admit for diuresis, symptomatic management
ED Attending Note
<Nicole Clemens PA-C - Last Filed: 12/04/24 20:47>
-
Portions of this chart may have been created with voice recognition software.� Occasional wrong word or��sound alike� substitutions may have occurred due to the inherent limitations of voice recognition software.
<Malorie Avendano DO - Last Filed: 12/04/24 15:15>
ED Attending Note
Patient seen and examined by attending physician: Yes
I performed the substantive portion of visit, reviewed & personally made and approve the management plan that is documented in note by myself or ALEX.: Yes
I performed a history and physical exam of patient and discussed management with resident, I reviewed resident's note and agree with documented findings and plan of care.: Yes
ED Attending Note:
89-year-old female with history of paroxysmal A-fib, not on anticoagulation, presenting to the emergency department for shortness of breath. Patient reports that she did feeling short of breath for the past several days. She also feels like she
has been going in and out of atrial fibrillation. Notes history of ablation in the past. She is on metoprolol twice a day for prior history of A-fib. Yesterday patient started to have a cough, with production of mucus, blood-tinged sputum.
Denies any yolanda hemoptysis. Denies any recent fever. Denies any known sick contacts. Shortness of breath is worse with exertion. Patient with recent hospitalization in August for pneumonia. Vital signs on arrival significant for mild
hypertension.
On exam, patient resting comfortably, no increased work of breathing, however when sitting up with minimal exertion, did become dyspneic. Diminished air movement to the left lower lung field. Irregularly irregular rhythm, rate controlled. EKG
confirms A-fib, again rate controlled. Concern for pulmonary edema/CHF versus infection. Patient without chest pain, lower suspicion for ACS. Nonischemic EKG. Lower suspicion for PE. Plan for laboratory analysis and chest x-ray imaging
14:00 -chest x-ray shows a large left pleural effusion, consistent with exam. No leukocytosis with lower suspicion at this time for pneumonia. Concern for volume overload, possible CHF. Will administer Lasix. Holding anticoagulation at this
time. On review of EMR, in 2021, patient had been on Coumadin, suffered significant GI bleed. Plan for admission for respiratory monitoring, diuresis, cardiac consultation
Discharge Plan
Departure
Patient Disposition: Admit
Date of Disposition: 12/04/24
Time of Disposition: 14:03
Presentation/result/management discussed w/ accepting MD/DO: Hospitalist
Covid-19: Negative COVID-19
Discharge Problem:
Pleural effusion, left, AF (paroxysmal atrial fibrillation), BARRIENTOS (dyspnea on exertion)
Interventions
Interventions:
*Risk Screen - Suicide Last Done: 12/04/24 10:44
*General Assessment Last Done: 12/04/24 10:44
*Neglect/Abuse Screening Last Done: 12/04/24 10:44
ED- Fall Risk Assessment Last Done: 12/04/24 11:56
*ED COVID-19 Vaccine History Last Done: 12/04/24 10:44
*Nursing Disposition Last Done: 12/04/24 19:21
ED- Cardiac Assessment Last Done: 12/04/24 11:57
ED- Pulmonary Assessment Last Done: 12/04/24 11:57
Discharge Date and Time
Discharge Date/Time: 12/04/24 19:21
[2024-12-04 13:03] LABS: COVID-19 Antigen Negative (Negative)
[2024-12-04 13:05] LABS: Atypical Lymphocytes 5 %; Band Neutrophils 4 % (0-3); Eosinophils 3 % (0-6); Lymphocytes 13 % (20-51); Metamyelocytes 2 % (-); Monocytes 40 % (2-9); Myelocytes 1 % (-); Normal RBC Morphology No; Nucleated Red Blood Cells 3 (-); Platelets Checked Yes; Segmented Neutrophils 32 % (42-75)
[2024-12-04 13:06] LABS: Anisocytosis 1+; Hypochromasia 1+
[2024-12-04 13:07] LABS: Total Cells Counted 100
[2024-12-04 13:17] LABS: NT-proBNP 1810 pg/ml; Troponin I 0.048 ng/ml
[2024-12-04] MEDS: LASIX 40 MG IV (14:24)
--- NOTE | 2024-12-04 17:10 | HPS.HSE ---
Family Physician
-
Family Physician: Tony Carrillo
Chief Complaint
-
sob
cough
History of Present Illness
89-year-old female with history atrial fibrillation, CHF, hypertension presenting to the emergency department for evaluation of worsening shortness of breath and cough for past few days. sob worse with exertion. cough is productive with sometimes
white or greenish sputum. she noticed blood tinged in sputum at times. her monitor at home told her that she was in A-fib. She does report intermittent cough over the past 2 months after a hospital admission for pneumonia. Patient denies any
associated chest pain, severe back pain. No fevers or chills. No sick contacts. No recent weight gain. denied fever, chills. denied abdominal pain, n,v,d. denied dysuria or hematuria.
Last week she had a fall. Patient dropped water on the kitchen floor. She slipped and fell. Noted generalized bruising. Denied hitting head. She did not seek medical attention, as she did not have any pain.
chest x ray with pleural effusion. received Lasix in ER. admitting for further management.
Medical History
Past Medical History
Past Medical History: Reports Other
Additional Past Medical History:
Hypertension
A-fib
Thrombophlebitis
Shingles
Colitis
Osteoporosis
Hypertension
Squamous cell carcinoma
DVT
Hyperlipidemia
Bradycardia ulcers
Past Surgical History: Reports Other
Additional Past Surgical History:
Hernia repair
Sigmoid colectomy
Skin cancer resection
Bone graft/tooth replaced
Social History
Tobacco: Former Smoker
Alcohol: None
Drug: None
Personal: Single
Living: With Family
Family History
Family History: Not pertinent
Allergies / Home Medications
Allergies reflects when Allergies were last updated in [facility].
Home Medications with original date entered in [facility]
Allergy/Medication List:
Allergies
Allergy/AdvReac Type Severity Reaction Status Date / Time
No Known Allergies Allergy Verified 12/04/24 10:47
Home Medications
simvastatin 40 mg tablet 40 mg PO HS High cholesterol 10/10/17
acetaminophen 325 mg tablet 650 mg PO Q8HPRN PRN mild pain 01/02/23
aspirin 81 mg tablet,delayed release 81 mg PO DAILY Blood clot prevention/tx 01/02/23
mesalamine 1.2 gram tablet,delayed release 1.2 g PO BID Ulcerative Colitis 01/02/23
furosemide 20 mg tablet 20 mg PO DAILY #30 tabs 02/20/23
mercaptopurine 50 mg tablet 50 mg PO BID 12/04/24
metoprolol succinate 50 mg tablet,extended release 24 hr 50 mg PO DAILY 12/04/24
metoprolol succinate 50 mg tablet,extended release 24 hr 100 mg PO QPM 12/04/24
Review of Systems
-
Constitutional: Reports No Symptoms
EENT: Reports No Symptoms
Respiratory: Reports Cough and Trouble Breathing
Cardiac: Reports No Symptoms
Abdomen/GI: Reports No Symptoms
: Reports No Symptoms
Musculoskeletal: Reports No Symptoms
Skin: Reports No Symptoms
Neurological: Reports No Symptoms
Endocrine: Reports No Symptoms
Hematologic/Lymphatic: Reports No Symptoms
Psych: Reports No Symptoms
Physical Exam
Vital Signs
Vital Signs
Temp Pulse Resp BP Pulse Ox
97.8 F 68 20 150/75 96
12/04/24 10:44 12/04/24 16:15 12/04/24 16:15 12/04/24 16:00 12/04/24 16:15
Physical Exam
General: Well Developed, Well Nourished and No Apparent Distress
HEENT: NormoCephalic, Moist mucous membranes and Atraumatic
Respiratory: Rales and Decreased Breath Sounds
Cardiac: S1/S2 and Regular Rhythm; No Murmur or Rub
GI: Soft, Non Tender, Non Distended and Normal Bowel Sounds; No Organomegaly
Rectal: Deferred by Provider
Musculoskeletal: No Clubbing, No Cyanosis and Other (Trace lower extremity edema)
Skin: No Rash
Neuro: AO x 3 and Nonfocal/grossly intact
Psych: Calm
Laboratory Results
-
12/04/24 11:00
12/04/24 11:00
Laboratory Results
Total Bilirubin 2.9 mg/dl (0.2-1.3) H 12/04/24 11:00
AST 54 U/L (14-36) H 12/04/24 11:00
ALT 17 U/L (0-35) 12/04/24 11:00
Alkaline Phosphatase 101 U/L (38-126) 12/04/24 11:00
Troponin I 0.048 ng/ml H* 12/04/24 12:25
Data Reviewed
-
Diagnostic Radiology: Report Reviewed by me
Lab Data: Labs Reviewed by me
Impression/Plan
-
# Left pleural effusion
#CHF exacerbation
-Chest x-ray with impression of moderate-large left pleural effusion with underlying compressive atelectasis versus pneumonia.
-BNP 1810
-Diuretics continued
- strict SOILA
-Daily weight
-Obtain echo
-COVID/flu
-Cardiology consulted
-IR consulted for thoracentesis
Echo 02/17/2023-EF 60-65%, moderate MR, small PFO, mild concentric LVH, mild TR, pulmonary artery pressure 40 to 45 mmHg
# Anemia of chronic disease
-Hemoglobin stable at 9.4
-No active bleeding
-Continue to monitor
# Chronic thrombocytopenia
-Platelets 86
-Continue to monitor
# Chronic Trop elevation
-Tropes 0.048
-Continue to trend
#recent mohs surgery on the face
#History of ulcerative colitis status post colectomy/sigmoid resection
#Peptic ulcer disease
#Diverticulitis s/p resection
#Cholelithiasis
- Continue mercaptopurine and mesalamine
HTN / HLD
- cont beta blockers, statin
#Paroxysmal atrial fibrillation
- hx PVI ablation 2015
- Not on anticoagulation because of GI bleed history and likely from anemia and thrombocytopenia
-EKG with A-fib
-Metoprolol continued with hold parameters
#arthritis/DJD's/Osteoporosis/DJD lumbar spine
#Vertigo
- fall precautions
#DVT prophylaxis
- Hx DVT
- scd
Code status: DNR
--- NOTE | 2024-12-04 20:35 | PTCARENOTE ---
Pt brought from ED A+OX3 VSS oriented to room and POC.
--- NOTE | 2024-12-04 21:08 | W.PN.UPDATE ---
Update Note
Progress Note Update
Attending note
I saw the patient independently
89-year-old female with history of:
atrial fibrillation,
CHF,
hypertension
presents with worsening shortness of breath and cough for past few days. The sob is worse with exertion. cough is productive Her monitor at home told her that she was in A-fib. She has had intermittent cough over the past 2 months after a hospital
admission for pneumonia. Patient denies any associated chest pain, severe back pain. No fevers or chills. No sick contacts. No recent weight gain. denied fever, chills. denied abdominal pain, n,v,d. denied dysuria or hematuria. Last week she had
a fall. Patient dropped water on the kitchen floor. She slipped and fell. Noted generalized bruising. Denied hitting head. She did not seek medical attention, as she did not have any pain. chest x ray in ER showed pleural effusion. She is in
afib.
Past Medical History
Hypertension
A-fib
Thrombophlebitis
Shingles
Colitis
Osteoporosis
Hypertension
Squamous cell carcinoma
DVT
Hyperlipidemia
Bradycardia ulcers
Past Surgical History: Reports Other
Additional Past Surgical History:
Hernia repair
Sigmoid colectomy
Skin cancer resection
Bone graft/tooth replaced
Physical Exam
General: Well Developed, Well Nourished and No Apparent Distress
HEENT: NormoCephalic, Moist mucous membranes and Atraumatic
Respiratory: Rales and Decreased Breath Sounds
Cardiac: S1/S2 and Regular Rhythm; No Murmur or Rub
GI: Soft, Non Tender, Non Distended and Normal Bowel Sounds; No Organomegaly
Psych: Calm
Impression/Plan
1. Left pleural effusion likely from a CHF exacerbation
-Chest x-ray with impression of moderate-large left pleural effusion with underlying compressive atelectasis versus pneumonia.
-BNP 1810
-Diuretics continued
- strict SOILA
-Daily weight
-echo
-Cardiology consulted
-IR consulted for thoracentesis
Of note, her Echo 02/17/2023-EF 60-65%, moderate MR, small PFO, mild concentric LVH, mild TR, pulmonary artery pressure 40 to 45 mmHg
Please see AIRPLANE CABIN ATTENDANT note for full details on
# Anemia of chronic disease
# Chronic thrombocytopenia
# Chronic Trop elevation
#recent mohs surgery on the face
#History of ulcerative colitis status post colectomy/sigmoid resection
#Peptic ulcer disease
#Diverticulitis s/p resection
#Cholelithiasis
#HTN / HLD
#Paroxysmal atrial fibrillation
#arthritis/DJD's/Osteoporosis/DJD lumbar spine
#Vertigo
DVT prophylaxis - scd
Code status: DNR
[2024-12-04] MEDS: PURINETHOL 50 MG PO (21:28)
[2024-12-04] MEDS: ASACOL, DELZICOL DR 1200 MG PO (21:29)
[2024-12-04] MEDS: TOPROL XL 100 MG PO (21:30)
[2024-12-04] MEDS: LIPITOR 20 MG PO (21:31)
[2024-12-04 23:29] LABS: LDH 554 U/L (120-246)
[2024-12-05] VITALS (7 sets, daily range): BP systolic 104–153; BP diastolic 49–88; PULSE 68–99; O2SAT 96; BMI 26.3
--- NOTE | 2024-12-05 03:18 | PTCARENOTE ---
0109: pts trop 1.040 EKG completed, pt denies chest pain. [place] [employer] P[employer]ER aware. Order for trop at 0600.
2001: pts trop 1.030 EKG completed, pt denies chest pain. [place] [employer] aware.
[2024-12-05 07:12] LABS: Troponin I 0.835 ng/ml
[2024-12-05] MEDS: ASPIR LOW (ENTERIC COATED) 81 MG PO (08:31)
[2024-12-05] MEDS: PURINETHOL 50 MG PO ×2 (08:31→19:15)
[2024-12-05] MEDS: ASACOL, DELZICOL DR 1200 MG PO (08:31)
[2024-12-05] MEDS: LASIX 40 MG IV (08:32)
[2024-12-05] MEDS: TOPROL XL 50 MG PO (08:32)
[2024-12-05 08:42] LABS: Hematocrit 30.5 % (37.0-47.0); Hemoglobin 9.6 g/dL (12.0-16.0); Mean Corp Hgb Conc. 31.5 g/dL (33.0-37.0); Mean Corpuscular Hgb 30.4 pg (27.0-31.0); Mean Corpuscular Volume 96.5 fL (81.0-99.0); Red Blood Cell Count 3.16 10^6/uL (4.20-5.40); Red Cell Dist. Width 20.2 % (11.5-14.5); White Blood Cell Count 10.2 10^3/uL (4.8-10.8)
[2024-12-05 08:44] LABS: HDL Cholesterol 33 mg/dl; LDL Cholesterol, Calculated 73 mg/dl; Total Cholesterol 132 mg/dl (50-199); Triglyceride 131 mg/dl (10-149); Very Low Density Lipoprotein 26 mg/dl (0-30)
[2024-12-05 09:13] LABS: TSH Reflex To Free T4 3.64 uIU/ml (0.47-4.68)
[2024-12-05 10:10] LABS: Glucose 76 mg/dl (70-99); LDH 488 U/L (120-246); Total Protein 6.3 g/dl (6.3-8.2)
--- NOTE | 2024-12-05 10:15 | W.PN.UPDATE ---
Update Note
Progress Note Update
- Pt on schedule for thoracentesis Friday
--- NOTE | 2024-12-05 11:26 | CON.CAR ---
Consultation
Consultation Request
Date/Time Consultation Requested: December 05, 2024
Date/Time Consultation Performed: December 05, 2024
Requesting Provider: Hospitalist
Performing Provider: Dr. Tony Anthony
Reason for Consultation: Shortness of breath, congestive heart failure
Medical History
-
Chief Complaint: Dyspnea on exertion, progressive shortness of breath
History of Present Illness:
Newspaper Subscription Solicitor: Dr. Ernesto Lincoln
PCP: Dr Tony Carrillo
She is an 89-year-old female with a medical history significant for heart failure with preserved ejection fraction, paroxysmal atrial fibrillation and hypertension who presented to the emergency department with progressive dyspnea on exertion and
shortness of breath over 2 to 3 days. There has been no chest pain. No fevers chills or night sweats.
Chest x-ray shows moderate left-sided pleural effusion and to my interpretation there is some vascular congestion
She is in atrial fibrillation with controlled ventricular rate.
Serial electrocardiograms have demonstrated atrial fibrillation, cannot exclude anterior septal infarct age undetermined with no serial changes of ischemia
proBNP is 1810
Troponin values are 0.048, 1.03, 1.04, 0.835
Medical history includes:
-Acute HFpEF
-Persistent atrial fibrillation
history of PVI 2015
not chronically anticoagulated due to GI bleed with blood loss anemia
-Has h/o NonMI troponin elevation with exacerbations of heart failure
-Klebsiella Pneumoniae sepsis due to UTI
-HTN
-Chronic kidney disease
-Dyslipidemia
-h/o GIB
-h/o DVT
-Ulcerative colitis
-Ambulatory dysfunction
-Vertigo
-Severe degenerative lumbar disc disease/osteoarthritis
NATHALY 06/25/2016: Ejection fraction 55�60%, mild to moderate MR, moderate to moderate TR, minimal atherosclerotic plaque in descending thoracic aorta
Echocardiogram 12/05/2014: Ejection fraction 60%, mild to moderate concentric LVH, mild to moderate TR, mild to moderate MR
Echocardiogram February 2011: LVEF 60-65% with no significant valvular disease.
Nuclear stress test February 2021: shows no significant ischemia.
Echo 01/03/2023: EF 65-70%, moderate MR, moderate TR
Echo 02/17/2023: EF 60 to 65%, mild concentric LVH, moderate MR, mild TR, PAP 40 to 45 mmHg, pleural effusion present, color flow pattern suggestive of small PFO
Social History
Tobacco: Former Smoker
Alcohol: None
Drug: None
Personal: Single
Living: With Family
Family History
Family History: Reviewed & Not Pertinent
Allergies / Home Medications
Allergy/AdvReac Type Severity Reaction Status Date / Time
No Known Allergies Allergy Verified 12/04/24 10:47
�Medication �Instructions �Recorded �Confirmed �Type
simvastatin 40 mg tablet 40 mg PO HS High cholesterol 10/10/17 12/04/24 History
acetaminophen 325 mg tablet 650 mg PO Q8HPRN PRN mild pain 01/02/23 12/04/24 History
aspirin 81 mg tablet,delayed 81 mg PO DAILY Blood clot 01/02/23 12/04/24 History
release prevention/tx
mesalamine 1.2 gram tablet,delayed 1.2 g PO BID Ulcerative Colitis 01/02/23 12/04/24 History
release
furosemide 20 mg tablet 20 mg PO DAILY #30 tabs 02/20/23 12/04/24 Rx
mercaptopurine 50 mg tablet 50 mg PO BID 12/04/24 12/04/24 History
metoprolol succinate 50 mg 50 mg PO DAILY 12/04/24 12/04/24 History
tablet,extended release 24 hr
metoprolol succinate 50 mg 100 mg PO QPM 12/04/24 12/04/24 History
tablet,extended release 24 hr
Review of Systems
-
History Source: Patient
All other systems: Negative unless noted
Constitutional: No Symptoms
EENT: No Symptoms
Respiratory: Cough and Trouble Breathing
Cardiac: No Symptoms
Abdomen/GI: No Symptoms
: No Symptoms
Musculoskeletal: No Symptoms
Skin: No Symptoms
Neurological: No Symptoms
Endocrine: No Symptoms
Hematologic/Lymphatic: No Symptoms
Physical Exam
Vital Signs
Temp Pulse Resp BP Pulse Ox
97.7 F 77 16 153/88 98
12/05/24 07:55 12/05/24 08:32 12/05/24 07:55 12/05/24 08:32 12/05/24 07:55
Lab Results
12/05/24 10:00
12/05/24 10:00
Troponin I 0.835 ng/ml H* 12/05/24 06:40
Tza-O-Qwatdzipyjk Pept 1810 pg/ml 12/04/24 12:25
Physical Exam
General: Well Developed, Well Nourished and No Apparent Distress
HEENT: Normocephalic, Anicteric and Moist Mucous Membranes
Respiratory: Other (Decreased breath sounds on the left base)
Cardiac: Irregular Rhythm (Normal S1 and S2, no S3 no S4, there is a grade 1/6 apical holosystolic murmur and no rubs)
Breast: Deferred by me
GI: Soft, Non Tender, Non Distended and Normal Bowel Sounds
Rectal: Deferred by Provider
Musculoskeletal: No Clubbing, No Cyanosis and Edema (There is trace pretibial edema bilaterally lower extremities)
Skin: Warm and Dry
Neuro: Awake, Alert, Oriented and AO x 3
Psych: Calm
Impression / Plan
-
Assessment:
-Left pleural effusion
-Acute HFpEF
-Persistent atrial fibrillation
history of PVI 2015
not chronically anticoagulated due to GI bleed with blood loss anemia
-Has h/o NonMI troponin elevation with exacerbations of heart failure
-Klebsiella Pneumoniae sepsis due to UTI
-HTN
-Chronic kidney disease
-Dyslipidemia
-h/o GIB
-h/o DVT
-Ulcerative colitis
-Ambulatory dysfunction
-Vertigo
-Severe degenerative lumbar disc disease/osteoarthritis
NATHALY 06/25/2016: Ejection fraction 55�60%, mild to moderate MR, moderate to moderate TR, minimal atherosclerotic plaque in descending thoracic aorta
Echocardiogram 12/05/2014: Ejection fraction 60%, mild to moderate concentric LVH, mild to moderate TR, mild to moderate MR
Echocardiogram February 2011: LVEF 60-65% with no significant valvular disease.
Nuclear stress test February 2021: shows no significant ischemia.
Echo 01/03/2023: EF 65-70%, moderate MR, moderate TR
Echo 02/17/2023: EF 60 to 65%, mild concentric LVH, moderate MR, mild TR, PAP 40 to 45 mmHg, pleural effusion present, color flow pattern suggestive of small PFO
Recommendations:
Patient with shortness of breath and left pleural effusion. Etiology not 100% clear but may certainly be related to congestive heart failure as she has a history of heart failure with preserved ejection fraction and currently is in acute
decompensated heart failure with preserved ejection fraction. There is also concern for potential pneumonia versus compression atelectasis.
Heart failure with preserved ejection fraction, now with acute exacerbation
-Thoracentesis for Friday as planned
-Diuresis with Lasix 40 mg IV daily (as an outpatient is on 20 mg orally daily)
-Echocardiogram
Troponin elevation
This is likely non-[place] troponin elevation related to decompensated congestive heart failure.
Trend seems to be leveling, ECG without ischemic changes and patient has had a history of this in the past with decompensated heart failure
Persistent atrial fibrillation
Patient has persistent atrial fibrillation. There is history of PVI in 2016 but atrial fibrillation recurred and has been persistent
Not anticoagulated due to history of GI bleeding, anemia and thrombocytopenia
At some point there could be consideration for left atrial appendage occlusion if patient can at least temporarily tolerate anticoagulation
Chronic anemia and thrombocytopenia
DNR status is noted
total time 81min
Data Reviewed
-
EKG: Tracing Personally Visualized and interpreted
Radiology: Image Personally Visualized and interpreted and Report Reviewed by me
Medical Tests (Nuc Med, Echo etc): Report Reviewed by me
Labs: Labs Reviewed by me
Old Records: Reviewed
--- NOTE | 2024-12-05 12:59 | W.PN.HOSP.TC ---
Today's Communication/Plan
-
Follow-up echo results and further cardiology recommendations
Plan for IR left thoracentesis 12/06
Assessment / Plan
Assessment / Plan
Gen-AAOx3, NAD
HEENT-NC, AT, anicteric, clear oral mm
Neck-supple
CV-reg, no M, +S1/S2
Lungs-decreased breath sounds left lung base
Abd-soft, NT, ND
Musculoskeletal-no edema, no deformity
Skin-warm and dry
Neuro-grossly non-focal
Psych-calm, cooperative
Ms. Abraham is a 89-year-old female with a medical history of atrial fibrillation, HFpEF, and hypertension presenting to the emergency department for evaluation of worsening shortness of breath and cough for past few days. sob worse with exertion.
cough is productive with sometimes white or greenish sputum. she noticed blood tinged in sputum at times. her monitor at home told her that she was in A-fib. She does report intermittent cough over the past 2 months after a hospital admission for
pneumonia. Patient denies any associated chest pain, severe back pain. No fevers or chills. No sick contacts. No recent weight gain. denied fever, chills. denied abdominal pain, n,v,d. denied dysuria or hematuria. Last week she had a fall.
Patient dropped water on the kitchen floor. She slipped and fell. Noted generalized bruising. Denied hitting head. She did not seek medical attention, as she did not have any pain.
chest x ray with pleural effusion. received Lasix in ER. Influenza negative. Elevated troponins. Admitted for further management.
Acute on chronic diastolic heart failure:
-Diuresis with Lasix 40 mg IV daily for now, maintain negative fluid balance
-Follow-up echocardiogram
-Beta-blockade with metoprolol succinate 50 mg in the morning and 100 mg at night
-Afterload reduction as blood pressure tolerates
-Dyspnea improving with diuresis
-Cardiology recommendations appreciated
Left pleural effusion:
-Moderate to large appearing on chest x-ray
-Not hypoxic
-Evaluated by IR with plan for thoracentesis tomorrow 12/06
Elevated troponins:
-Have already peaked
-Does not appear to be ACS
-Was not started on IV heparin due to chronic anemia with history of bleeding and thrombocytopenia
-Continuing home aspirin and statin
CODE STATUS:
Anticipated Discharge: > 48 hours
Subjective/Interval History
-
Date of Service: December 05, 2024
Ms. Abraham was seen and examined at bedside this morning. She is breathing more comfortably today and feels generally well compared to time of admission. She is awaiting echocardiogram to evaluate for possible cardiac etiologies of her
respiratory symptoms. She is also awaiting IR evaluation and possible thoracentesis.
Objective Data
-
Labs:
Laboratory Results
12/05/24 12/05/24
06:40 10:00
WBC 10.2
Hgb 9.6 L
Hct 30.5 L Cancelled
Plt Count
Glucose 76 Cancelled
Vital Signs:
Vital Signs
Temp Pulse Resp BP Pulse Ox
97.7 F 77 16 153/88 98
12/05/24 07:55 12/05/24 08:32 12/05/24 07:55 12/05/24 08:32 12/05/24 07:55
I&O
12/04/24 12/05/24 12/06/24
06:59 06:59 06:59
Intake Total 720 / 720
Output Total 1750 / 1750
Balance -1030 / -1030
Review of Systems
-
History Source: Patient
All other systems: Reviewed and negative
Respiratory: Reports Cough
Physical Exam
-
General: No Apparent Distress
--- NOTE | 2024-12-05 15:56 | CM ---
Alert awake oriented patient who lives with her dgt Jaci who lives in a bilevel story home with 6 steps to enter and 6 to bed bathroom. She is assisted in all activities of daily living.
walker cane
[facility]
Pharmacy [facility] [place]
PCP Dr Tony Carrillo
PLAN Will need PT OT for dc planning
[2024-12-05] MEDS: TOPROL XL 100 MG PO (16:51)
[2024-12-05] MEDS: NON-FORMULARY ITEM 1 UNIT PO (19:15)
[2024-12-05] MEDS: LIPITOR 20 MG PO (19:15)
[2024-12-06] VITALS (7 sets, daily range): BP systolic 72–155; BP diastolic 49–98; BMI 24.3
[2024-12-06 07:50] LABS: Hematocrit 30.4 % (37.0-47.0); Hemoglobin 9.3 g/dL (12.0-16.0); Mean Corp Hgb Conc. 30.6 g/dL (33.0-37.0); Mean Corpuscular Hgb 29.5 pg (27.0-31.0); Mean Corpuscular Volume 96.5 fL (81.0-99.0); Red Blood Cell Count 3.15 10^6/uL (4.20-5.40); Red Cell Dist. Width 19.9 % (11.5-14.5); White Blood Cell Count 14.1 10^3/uL (4.8-10.8)
[2024-12-06 08:06] LABS: Mean Platelet Volume 12.2 fL (7.4-10.4); Platelet Count 77 10^3/uL (130-400)
[2024-12-06] MEDS: NON-FORMULARY ITEM 1 UNIT PO ×2 (09:02→19:50)
[2024-12-06] MEDS: PURINETHOL 50 MG PO ×2 (09:03→19:49)
[2024-12-06] MEDS: TOPROL XL 50 MG PO (09:03)
[2024-12-06] MEDS: ASPIR LOW (ENTERIC COATED) 81 MG PO (09:04)
[2024-12-06] MEDS: LASIX 40 MG IV (09:04)
--- NOTE | 2024-12-06 10:23 | W.PN.HOSP.TC ---
Addendum entered and electronically signed by Aron Benjamin MD 12/06/24 17:14:
Addendum
Pt is feeling sob despite normal SaO2 around 97% on RA
No chest pain
Since she had thoracentesis earlier, will repeat chest x ray but will do 2 views
Also check CBC to rule out blood loss
Pt felt dizzy upon standing with low bP< will hold BB for HS
Check orthostatic vitals
d/w nursing staff
Will also sign out to on-call doctor to follow
End
Addendum entered and electronically signed by Aron Benjamin MD 12/06/24 13:23:
Addendum
I was called to evaluate post-thoracentesis lump seen on the chest wall, posteriorly
Lump is soft, nontender, fluctuating, possible mild hematoma/extravasation of pleural fluid
No respiratory distress. Lung sounds are heard, no crepitus feeling
Will do chest x-ray and follow-up
Discussed with cardiology, IR and nursing staff
End
Original Note:
Today's Communication/Plan
-
.
Assessment / Plan
Assessment / Plan
PE:
Gen-AAOx3, NAD
HEENT-NC, AT, anicteric, clear oral mm
Neck-supple
CV-reg, no M, +S1/S2
Lungs-decreased breath sounds left lung base
Abd-soft, NT, ND
Musculoskeletal-no edema, no deformity
Skin-warm and dry
Neuro-grossly non-focal
Psych-calm, cooperative
Ms. Abraham is a 89-year-old female with a medical history of atrial fibrillation, HFpEF, and hypertension presenting to the emergency department for evaluation of worsening shortness of breath and cough for past few days. sob worse with exertion.
cough is productive with sometimes white or greenish sputum. she noticed blood tinged in sputum at times. her monitor at home told her that she was in A-fib. She does report intermittent cough over the past 2 months after a hospital admission for
pneumonia. Patient denies any associated chest pain, severe back pain. No fevers or chills. No sick contacts. No recent weight gain. denied fever, chills. denied abdominal pain, n,v,d. denied dysuria or hematuria. Last week she had a fall.
Patient dropped water on the kitchen floor. She slipped and fell. Noted generalized bruising. Denied hitting head. She did not seek medical attention, as she did not have any pain.
Acute on chronic diastolic heart failure:
-Diuresis with Lasix 40 mg IV daily for now, maintain negative fluid balance
-Follow-up echocardiogram
-Beta-blockade with metoprolol succinate 50 mg in the morning and 100 mg at night
-Afterload reduction as blood pressure tolerates
-Dyspnea improving with diuresis
-Cardiology recommendations appreciated
Left pleural effusion:
-Moderate to large appearing on chest x-ray
-Not hypoxic but symptomatic
-s/p successful ultrasound-guided thoracentesis, yielding 650 cc of serosanguineous pleural fluid on 12/06/24. Appreciate IR help.
Elevated troponin, c/w non-[place] troponin elevation related to decompensated congestive heart failure.
-Have already peaked. No chest pain
-Continuing home aspirin and statin
# persistent A fib
Hx of GI bleeding, anemia and thrombocytopenia. Continue with aspirin only.
# Post thoracentesis nausea, will give Zofran and monitor. No abdominal pain
# History of ulcerative colitis status post colectomy/sigmoid resection
Continue mercaptopurine and mesalamine
# CKD stage IIIA
# Essential Hypertension-continue beta-blockers
# Hyperlipidemia-continue statin
# History of Peptic ulcer disease
# Cholelithiasis
# History of DVT-not on anticoagulation
# arthritis/DJD's/Osteoporosis/DJD lumbar spine
# Vertigo
# Ex-smoker
Total time spent to see the patient, examine the patient, review data and lab results, discuss treatment plan with patient and nursing staff around 55 minutes
Anticipated Discharge: 24 - 48 hours
Subjective/Interval History
-
Date of Service: December 06, 2024
No sob
No chest pain
Feels tired
Objective Data
-
Labs:
Laboratory Results
12/06/24
06:43
WBC 14.1 H
Hgb 9.3 L
Hct 30.4 L
Plt Count 77 L
Vital Signs:
Vital Signs
Temp Pulse Resp BP Pulse Ox
98 F 72 18 148/72 98
12/06/24 10:10 12/06/24 10:10 12/06/24 10:10 12/06/24 10:10 12/06/24 10:10
I&O
12/05/24 12/06/24 12/07/24
06:59 06:59 06:59
Intake Total 720 / 720 960 / 960
Output Total 1750 / 1750 800 / 800
Balance -1030 / -1030 160 / 160
[2024-12-06 11:09] LABS: Body Fluid pH 7.43
[2024-12-06 11:28] LABS: Body Fluid Amylase 67 U/L; Body Fluid Glucose 114 mg/dl; Body Fluid LDH 350 U/L; Body Fluid Protein 3.1 g/dl; Body Fluid Triglycerides < 30 mg/dl
[2024-12-06 11:57] LABS: Body Fluid Mononuclear 92.5 %; Body Fluid Polymorphonuclear 7.5 %; Body Fluid WBC 4269 /CUMM
[2024-12-06 12:07] LABS: Body Fluid Second Tech ASW
--- NOTE | 2024-12-06 12:26 | W.PN.CARDCBS ---
Addendum entered and electronically signed by Maurice Carlos MD 12/06/24 13:11:
I saw and examined the patient.
The HOMEMAKER COMPANION or PA's note was reviewed and I agree with the note.
Comment: General: Well developed, well nourished in NAD.
Neck: Supple, no JVD, HJR, carotids +2 B/L, no bruits bilaterally.
Heart: Non displaced PMI, Irreg, no murmurs, No S3, S4, no rubs.
Lungs: scattered rhonchi
Extremities: No clubbing, cyanosis or edema bilaterally.
Neuro: Grossly nonfocal, awake, alert and oriented x3.
Now off oxygen. cont iv lasix. check echo. IR to address hematoma at thoracentesis site
Original Note:
Today's Communication / Plan
-
Echo pending
Status post left-sided thoracentesis now with concern for hematoma at procedural site
Continue to monitor and trend vitals closely
Ongoing IV diuresis with Lasix
Would check BMP if CBC drawn this afternoon if not draw in a.m
Impression / Plan
-
Cash Management Officer: Dr. Ernesto Lincoln
PCP: Dr Tony Carrillo
Assessment:
-Presented 12/04/2024 with progressive dyspnea on exertion and shortness of breath over 2 to 3 days
-Left pleural effusion
-Acute HFpEF, proBNP 1809
-Elevated troponin, peak 1.040
-Persistent atrial fibrillation
history of PVI 2015
not chronically anticoagulated due to GI bleed with blood loss anemia
-Has h/o NonMI troponin elevation with exacerbations of heart failure
-Klebsiella Pneumoniae sepsis due to UTI
-HTN
-Chronic kidney disease
-Dyslipidemia
-h/o GIB
-h/o DVT
-Ulcerative colitis
-Ambulatory dysfunction
-Vertigo
-Severe degenerative lumbar disc disease/osteoarthritis
NATHALY 06/25/2016: Ejection fraction 55�60%, mild to moderate MR, moderate to moderate TR, minimal atherosclerotic plaque in descending thoracic aorta
Echocardiogram 12/05/2014: Ejection fraction 60%, mild to moderate concentric LVH, mild to moderate TR, mild to moderate MR
Echocardiogram February 2011: LVEF 60-65% with no significant valvular disease.
Nuclear stress test February 2021: shows no significant ischemia.
Echo 01/03/2023: EF 65-70%, moderate MR, moderate TR
Echo 02/17/2023: EF 60 to 65%, mild concentric LVH, moderate MR, mild TR, PAP 40 to 45 mmHg, pleural effusion present, color flow pattern suggestive of small PFO
Recommendations:
Patient presented 12/04/2024 with shortness of breath and left pleural effusion. Etiology not 100% clear but may certainly be related to congestive heart failure as she has a history of heart failure with preserved ejection fraction and currently is
in acute decompensated heart failure with preserved ejection fraction. There is also concern for potential pneumonia versus compression atelectasis.
Heart failure with preserved ejection fraction, now with acute exacerbation
-Ongoing diuresis with Lasix 40 mg IV daily (as an outpatient is on 20 mg orally daily).
-Would check renal function and electrolytes if CBC drawn this afternoon if not in a.m.
-s/p Thoracentesis 12/06/24
-Echocardiogram pending
Left pleural effusion
-Status post thoracentesis with 650 cc of serosanguineous fluid 12/06/2024
-Concern for possible hematoma from thoracentesis at area of access site. Patient denies having any pain or discomfort at the site. I personally notified nursing, hospitalist and IR of findings
-Consider repeating chest x-ray, may need hemoglobin checked this afternoon. Patient not on anticoagulation but takes aspirin
Troponin elevation
This is likely nonischemic myocardial injury secondary to decompensated congestive heart failure.
Peaked 1.040 and denies chest pain. ECG without ischemic changes and patient has had a history of this in the past with decompensated heart failure
Persistent atrial fibrillation
Patient has persistent atrial fibrillation. There is history of PVI in 2016 but atrial fibrillation recurred and has been persistent
Not anticoagulated due to history of GI bleeding, anemia and thrombocytopenia
At some point there could be consideration for left atrial appendage occlusion if patient can at least temporarily tolerate anticoagulation
Chronic anemia and thrombocytopenia;
-hgb 9.3; continue to monitor and trend with concern for hematoma post left sided thoracentesis
DNR status is noted
HPI 12/05/2024:
She is an 89-year-old female with a medical history significant for heart failure with preserved ejection fraction, paroxysmal atrial fibrillation and hypertension who presented to the emergency department with progressive dyspnea on exertion and
shortness of breath over 2 to 3 days. There has been no chest pain. No fevers chills or night sweats.
Chest x-ray shows moderate left-sided pleural effusion and to my interpretation there is some vascular congestion
She is in atrial fibrillation with controlled ventricular rate.
Serial electrocardiograms have demonstrated atrial fibrillation, cannot exclude anterior septal infarct age undetermined with no serial changes of ischemia
proBNP is 1810
Troponin values are 0.048, 1.03, 1.04, 0.835
Progress Note - Cash Management Officer
Subjective
Date of Service: December 06, 2024
Patient seen and examined. Patient reports she had echo and thoracentesis earlier this morning. Overall reports she is feeling well. She did have some nauseousness postthoracentesis then proceeded to have bowel movement upon returning to the
floor and feels better.
Patient found to have enlarging nontender mass at thoracentesis site.
Objective
Labs:
12/06/24 06:43
12/05/24 10:00
Labs
Hgb 9.3 g/dL (12.0-16.0) L 12/06/24 06:43
Hct 30.4 % (37.0-47.0) L 12/06/24 06:43
Plt Count 77 10^3/uL (130-400) L 12/06/24 06:43
Sodium 139 mmol/L (135-145) 12/04/24 11:00
Potassium 4.7 mmol/L (3.5-5.1) 12/04/24 11:00
BUN 23 mg/dl (7-17) H 12/04/24 11:00
Creatinine 1.0 mg/dL (0.6-1.0) 12/04/24 11:00
Glucose Cancelled 12/05/24 10:00
Troponins
12/04/24 12/04/24 12/05/24
12 20:02 01:09
Troponin I 0.048 H* 1.030 H* D 1.040 H*
12/05/24
06:40
Troponin I 0.835 H*
Vital Signs and I&O:
Vital Signs
Temp Pulse Resp BP Pulse Ox
98 F 72 18 148/72 98
12/06/24 10:10 12/06/24 10:10 12/06/24 10:10 12/06/24 10:10 12/06/24 10:10
Vital Signs
Temp Pulse Resp BP Pulse Ox
98 F 72 18 148/72 98
12/06/24 10:10 12/06/24 10:10 12/06/24 10:10 12/06/24 10:10 12/06/24 10:10
Intake & Output
12/04/24 12/05/24 12/06/24 12/07/24
06:59 06:59 06:59 06:59
Intake Total 720 / 720 960 / 960
Output Total 1750 / 1750 800 / 800
Balance -1030 / -1030 160 / 160
Physical Exam
Physical Exam
GEN: No distress, awake, Ox3
HEENT: supple, anicteric, mmm
LUNGS: Mildly decreased breath sounds with some crackles at left base CTA, no wheezes/rales
CV: Irregularly irregular, S1/S2, 1/6 syst LSB, no murmur
Back: Firm nonpainful mass at left thoracentesis site concerning for hematoma
ABD: soft, BS+, NT/ND
EXT: No edema, clubbing or cyanosis
NEURO: Gross non-focal
SKIN: No rash, warm, dry, pink
[2024-12-06] MEDS: ZOFRAN 4 MG IV (12:39)
--- NOTE | 2024-12-06 12:52 | PTCARENOTE ---
Pt returned to unit after thoracentesis and echo feeling nauseous and a little dizzy. Pt appears to have a soft lump/collection on left back, below bandage. collection is soft, pt reports no pain. IR notified by Cardiology. Pt received zofran for
nausea per order.
[2024-12-06] MEDS: TOPROL XL PO (16:45)
[2024-12-06 17:49] LABS: Hematocrit 28.3 % (37.0-47.0); Hemoglobin 8.7 g/dL (12.0-16.0); Mean Corp Hgb Conc. 30.7 g/dL (33.0-37.0); Mean Corpuscular Hgb 29.7 pg (27.0-31.0); Mean Corpuscular Volume 96.6 fL (81.0-99.0); Mean Platelet Volume 12.7 fL (7.4-10.4); Platelet Count 103 10^3/uL (130-400); Red Blood Cell Count 2.93 10^6/uL (4.20-5.40); Red Cell Dist. Width 19.9 % (11.5-14.5); White Blood Cell Count 14.9 10^3/uL (4.8-10.8)
[2024-12-06] MEDS: LIPITOR 20 MG PO (19:49)
[2024-12-06] MEDS: MYLICON 80 MG PO (19:49)
[2024-12-07] VITALS (8 sets, daily range): BP systolic 121–147; BP diastolic 50–83; BMI 25.4
[2024-12-07 07:22] LABS: Hematocrit 25.1 % (37.0-47.0); Hemoglobin 8.1 g/dL (12.0-16.0); Mean Corp Hgb Conc. 32.3 g/dL (33.0-37.0); Mean Corpuscular Hgb 30.1 pg (27.0-31.0); Mean Corpuscular Volume 93.3 fL (81.0-99.0); Red Blood Cell Count 2.69 10^6/uL (4.20-5.40); Red Cell Dist. Width 19.3 % (11.5-14.5); White Blood Cell Count 17.6 10^3/uL (4.8-10.8)
[2024-12-07 07:37] LABS: Blood Urea Nitrogen 45 mg/dl (7-17); Calcium 7.8 mg/dl (8.4-10.2); Carbon Dioxide 25 mmol/L (22-30); Chloride 97 mmol/L (98-107); Estimated Creatinine Clearance 18 ml/min; Glucose 114 mg/dl (70-99); Potassium 4.6 mmol/L (3.5-5.1); Sodium 135 mmol/L (135-145); eGFR 23.44
[2024-12-07] MEDS: NON-FORMULARY ITEM 1 UNIT PO ×2 (08:24→20:31)
[2024-12-07] MEDS: ASPIR LOW (ENTERIC COATED) 81 MG PO (08:24)
[2024-12-07] MEDS: LASIX 20 MG PO (08:26)
[2024-12-07] MEDS: PURINETHOL 50 MG PO ×2 (08:29→20:31)
[2024-12-07] MEDS: TOPROL XL 50 MG PO (08:29)
[2024-12-07 08:41] LABS: Mean Platelet Volume 12.6 fL (7.4-10.4); Platelet Count 105 10^3/uL (130-400)
--- NOTE | 2024-12-07 09:25 | W.PN.HOSP.TC ---
Today's Communication/Plan
-
SAMIRA, hypotension, dizziness upon standing
Post Lasix 40 mg IV , changed to oral 20 mg, had anemia and hypotension, will hold Lasix for now ( already received a dose today)
Will give one unit of RBCs.
Assessment / Plan
Assessment / Plan
PE:
Gen-AAOx3, NAD
HEENT-NC, AT, anicteric, clear oral mm
Neck-supple
CV-reg, no M, +S1/S2
Lungs-more air left lung base, left chest wall hematoma/ lump, non tender, mild bruising, not increased in size.
Abd-soft, NT, ND
Musculoskeletal-no edema, no deformity
Skin-warm and dry
Neuro-grossly non-focal
Psych-calm, cooperative
Ms. Abraham is a 89-year-old female with a medical history of atrial fibrillation, HFpEF, and hypertension presenting to the emergency department for evaluation of worsening shortness of breath and cough for past few days. sob worse with exertion.
cough is productive with sometimes white or greenish sputum. she noticed blood tinged in sputum at times. her monitor at home told her that she was in A-fib. She does report intermittent cough over the past 2 months after a hospital admission for
pneumonia. Patient denies any associated chest pain, severe back pain. No fevers or chills. No sick contacts. No recent weight gain. denied fever, chills. denied abdominal pain, n,v,d. denied dysuria or hematuria. Last week she had a fall.
Patient dropped water on the kitchen floor. She slipped and fell. Noted generalized bruising. Denied hitting head. She did not seek medical attention, as she did not have any pain.
# Acute blood loss anemia on chronic anemia from Chronic gI blood loss and anemia of chronic disease ( CKD)
will give one unit of blood, consent signed. Pt gets blood transfusion as needed.
History of GI bleeding/ chronic blood loss anemia, diverticulosis
No melena at present time.
Acute on chronic diastolic heart failure:
-Post Lasix 40 mg IV , changed to oral 20 mg, had anemia and hypotension, will hold Lasix for now ( already received a dose today)
-Follow-up echocardiogram
-Beta-blockade with metoprolol succinate 50 mg in the morning and 100 mg at night
-Afterload reduction as blood pressure tolerates
-Dyspnea improving with diuresis
-Cardiology recommendations appreciated
# Post thoracentesis chest wall hematoma, no worsening size of hematoma
X ray done twice post procedure, no hemothorax, no pneumothorax.
# Left pleural effusion:
-Moderate to large appearing on chest x-ray
-Not hypoxic but symptomatic
-s/p successful ultrasound-guided thoracentesis, yielding 650 cc of serosanguineous pleural fluid on 12/06/24. Appreciate IR help.
Elevated troponin, c/w non-ID troponin elevation related to decompensated congestive heart failure.
-Have already peaked. No chest pain
-Continuing home aspirin and statin
# persistent A fib
Hx of GI bleeding, anemia and thrombocytopenia. Continue with aspirin only.
# History of ulcerative colitis status post colectomy/sigmoid resection
Continue mercaptopurine and mesalamine
# CKD stage IIIA
SAMIRA check bladder scan
Hold Lasix, already got the dose today
Avoid hypotension
Give blood transfusion
# Essential Hypertension-continue beta-blockers
# Hyperlipidemia-continue statin
# History of Peptic ulcer disease
# Cholelithiasis
# History of DVT-not on anticoagulation
# arthritis/DJD's/Osteoporosis/DJD lumbar spine
# Vertigo
# Ex-smoker
Total time spent to see the patient, examine the patient, review data and lab results, discuss treatment plan with patient and nursing staff around 55 minutes
Anticipated Discharge: > 48 hours
Subjective/Interval History
-
Date of Service: December 07, 2024
She feels tried and dizzy upon standing mostly
No chest pains, no sob
Objective Data
-
Labs:
Laboratory Results
12/07/24
06:10
WBC 17.6 H
Hgb 8.1 L
Hct 25.1 L
Plt Count 105 L
Sodium 135
Potassium 4.6
Chloride 97 L
Carbon Dioxide 25
BUN 45 H
Creatinine 2.0 H
Glucose 114 H
Calcium 7.8 L
Vital Signs:
Vital Signs
Temp Pulse Resp BP Pulse Ox
97.8 F 98 18 147/50 100
12/07/24 07:35 12/07/24 07:35 12/07/24 07:35 12/07/24 08:26 12/07/24 07:35
I&O
12/06/24 12/07/24 12/08/24
06:59 06:59 06:59
Intake Total 960 / 960 240 / 240
Output Total 800 / 800 200 / 200
Balance 160 / 160 40 / 40
--- NOTE | 2024-12-07 10:12 | W.PN.CARDCBS ---
Addendum entered and electronically signed by Davian Stuart MD 12/07/24 13:51:
I saw and examined the patient.
The Back End Engineer's note was reviewed and I agree with the note.
Comment: Briefly, 89-year-old woman presenting with worsening dyspnea found to be in acute heart failure with preserved preserved ejection fraction
Received IV diuretics and also underwent thoracentesis yesterday
Has had improvement in her symptoms with this however creatinine is significantly higher today
Would hold on further diuresis and monitor renal function going forward before resuming Lasix
Hold off on MRA or SGLT2 given rising creatinine
Rest per Iram Martinez
Original Note:
Today's Communication / Plan
-
Would hold diuresis and transition to oral Lasix in 24-48 if creat improves
Patient to get 1 unit of packed RBCs for hemoglobin of 8.1
Resolved hematoma from thoracentesis
Outpatient cardiology follow-up has been arranged
Impression / Plan
-
Art Consultant: Dr. Ernesto Lincoln
PCP: Dr Tony Carrillo
Assessment:
-Presented 12/04/2024 with progressive dyspnea on exertion and shortness of breath over 2 to 3 days
-Left pleural effusion
s/p left thoracentesis 650 cc serosanguineous fluid 12/06/24
-Acute HFpEF, proBNP 1810
-Elevated troponin, peak 1.040
-Persistent atrial fibrillation
history of PVI 2015
not chronically anticoagulated due to GI bleed with blood loss anemia
-Has h/o NonMI troponin elevation with exacerbations of heart failure
-Klebsiella Pneumoniae sepsis due to UTI
-HTN
-Chronic kidney disease
-Dyslipidemia
-h/o GIB
-h/o DVT
-Ulcerative colitis
-Ambulatory dysfunction
-Vertigo
-Severe degenerative lumbar disc disease/osteoarthritis
NATHALY 06/25/2016: Ejection fraction 55�60%, mild to moderate MR, moderate to moderate TR, minimal atherosclerotic plaque in descending thoracic aorta
Echocardiogram 12/05/2014: Ejection fraction 60%, mild to moderate concentric LVH, mild to moderate TR, mild to moderate MR
Echocardiogram February 2011: LVEF 60-65% with no significant valvular disease.
Nuclear stress test February 2021: shows no significant ischemia.
Echo 01/03/2023: EF 65-70%, moderate MR, moderate TR
Echo 02/17/2023: EF 60 to 65%, mild concentric LVH, moderate MR, mild TR, PAP 40 to 45 mmHg, pleural effusion present, color flow pattern suggestive of small PFO
Echo 12/06/2024: EF 55 to 60%. Mild septal hypertrophy. No regional wall motion abnormality. Mildly dilated left atrium(35-41 mL/m2). Mildly dilated right atrium. Mild to moderate MR. Mild AI. Moderate TR with PAP 32 mmHg. No pericardial
effusion
Recommendations:
Patient presented 12/04/2024 with shortness of breath and left pleural effusion. Etiology not 100% clear but may certainly be related to congestive heart failure as she has a history of heart failure with preserved ejection fraction and currently is
in acute decompensated heart failure with preserved ejection fraction. There is also concern for potential pneumonia versus compression atelectasis.
Heart failure with preserved ejection fraction, now with acute exacerbation
-Overall seems to be in improving.
-Patient diuresed with IV Lasix. Developed symptomatic hypotension with standing on the evening of 12/06/24. Now transition to oral Lasix 20 mg which was outpatient dosing
-SAMIRA with IV diuresis. Creatinine bumped from 1.0-2.0. Patient already got Lasix this a.m. Hopefully renal function will improve with a unit of blood.
-s/p Thoracentesis 12/06/24 656 cc of serosanguineous fluid.
-Echocardiogram as noted above stable with preserved ejection fraction mild to moderate MR, mild AI and mild TR.
Left pleural effusion
-Status post thoracentesis with 650 cc of serosanguineous fluid 12/06/2024
-Postprocedural hematoma from thoracentesis at area of access site. Repeat chest x-ray x 2 unremarkable.
-Patient denies having any pain or discomfort at the site.
-Drop of hemoglobin and getting 1 unit of blood 12/07/2024. Patient not on anticoagulation but takes aspirin
Troponin elevation
This is likely nonischemic myocardial injury secondary to decompensated congestive heart failure.
Peaked 1.040 and denies chest pain. ECG without ischemic changes and patient has had a history of this in the past with decompensated heart failure
Persistent atrial fibrillation
Patient has persistent atrial fibrillation. There is history of PVI in 2016 but atrial fibrillation recurred and has been persistent
Not anticoagulated due to history of GI bleeding, anemia and thrombocytopenia
At some point there could be consideration for left atrial appendage occlusion if patient can at least temporarily tolerate anticoagulation
Chronic anemia and thrombocytopenia;
-Admission hemoglobin 9.4. Now has dropped to 8.1. Primary service has ordered 1 unit of blood for 12/07/2024. Continue to monitor and trend
DNR status is noted
HPI 12/05/2024:
She is an 89-year-old female with a medical history significant for heart failure with preserved ejection fraction, paroxysmal atrial fibrillation and hypertension who presented to the emergency department with progressive dyspnea on exertion and
shortness of breath over 2 to 3 days. There has been no chest pain. No fevers chills or night sweats.
Chest x-ray shows moderate left-sided pleural effusion and to my interpretation there is some vascular congestion
She is in atrial fibrillation with controlled ventricular rate.
Serial electrocardiograms have demonstrated atrial fibrillation, cannot exclude anterior septal infarct age undetermined with no serial changes of ischemia
proBNP is 1810
Troponin values are 0.048, 1.03, 1.04, 0.835
Progress Note - Art Consultant
Subjective
Date of Service: December 07, 2024
Patient seen and examined. Reports last evening she had an episode of symptomatic hypotension with standing. In general she feels her breathing is better but still feels weak.
Denies chest pain.
Objective
Labs:
12/07/24 06:10
12/07/24 06:10
Labs
Hgb 8.1 g/dL (12.0-16.0) L 12/07/24 06:10
Hct 25.1 % (37.0-47.0) L 12/07/24 06:10
Plt Count 105 10^3/uL (130-400) L 12/07/24 06:10
Sodium 135 mmol/L (135-145) 12/07/24 06:10
Potassium 4.6 mmol/L (3.5-5.1) 12/07/24 06:10
BUN 45 mg/dl (7-17) H 12/07/24 06:10
Creatinine 2.0 mg/dL (0.6-1.0) H 12/07/24 06:10
Glucose 114 mg/dl (70-99) H 12/07/24 06:10
Troponins
12/04/24 12/04/24 12/05/24
12:25 20:02 01:09
Troponin I 0.048 H* 1.030 H* D 1.040 H*
12/05/24
06:40
Troponin I 0.835 H*
Vital Signs and I&O:
Vital Signs
Temp Pulse Resp BP Pulse Ox
97.8 F 98 18 147/50 100
12/07/24 07:35 12/07/24 07:35 12/07/24 07:35 12/07/24 08:26 12/07/24 07:35
Vital Signs
Temp Pulse Resp BP Pulse Ox
97.8 F 98 18 147/50 100
12/07/24 07:35 12/07/24 07:35 12/07/24 07:35 12/07/24 08:26 12/07/24 07:35
Intake & Output
12/05/24 12/06/24 12/07/24 12/08/24
06:59 06:59 06:59 06:59
Intake Total 720 / 720 960 / 960 240 / 240
Output Total 1750 / 1750 800 / 800 200 / 200
Balance -1030 / -1030 160 / 160 40 / 40
Physical Exam
Physical Exam
GEN: No distress, awake, Ox3
HEENT: supple, anicteric, mmm
LUNGS: Mildly decreased breath sounds with some crackles at left base CTA, no wheezes/rales
CV: Irregularly irregular, S1/S2, 1/6 syst LSB, no murmur
Back: Almost resolved hematoma on left middle back of area of thoracentesis
ABD: soft, BS+, NT/ND
EXT: No edema, clubbing or cyanosis
NEURO: Gross non-focal
SKIN: No rash, warm, dry, pink
--- NOTE | 2024-12-07 13:49 | PTCARENOTE ---
Pt receiving blood trasfusion. Approx an hour and a half into transfusion, IV line infiltrated, new line placed, warm compress placed, made aware
[2024-12-07] MEDS: TOPROL XL 100 MG PO (17:39)
[2024-12-07] MEDS: LIPITOR 20 MG PO (20:31)
--- NOTE | 2024-12-08 02:34 | DOWNTIME ---
There was a [employer] Client Gutter Installer Downtime on 12/08/2024 from 0100 to 12/08/2023 at 0205 . Downtime documentation of patient's care, including medication administrations, has been reconciled in the electronic record per guidelines. Refer to the
patient's paper chart under the miscellaneous tab to see printed paper medication records and downtime forms.
[2024-12-08 06:00] VITALS: BMI 24.4
[2024-12-08 06:55] LABS: Hematocrit 25.7 % (37.0-47.0); Hemoglobin 8.3 g/dL (12.0-16.0); Mean Corp Hgb Conc. 32.3 g/dL (33.0-37.0); Mean Corpuscular Volume 92.8 fL (81.0-99.0); Platelet Count 102 10^3/uL (130-400); Red Blood Cell Count 2.77 10^6/uL (4.20-5.40); Red Cell Dist. Width 19.6 % (11.5-14.5); White Blood Cell Count 17.3 10^3/uL (4.8-10.8)
[2024-12-08 07:08] LABS: Blood Urea Nitrogen 55 mg/dl (7-17); Calcium 7.6 mg/dl (8.4-10.2); Carbon Dioxide 25 mmol/L (22-30); Chloride 95 mmol/L (98-107); Estimated Creatinine Clearance 19 ml/min; Glucose 93 mg/dl (70-99); Potassium 4.6 mmol/L (3.5-5.1); Sodium 133 mmol/L (135-145); eGFR 24.93
[2024-12-08 07:40] VITALS: BP 110/48
[2024-12-08] MEDS: NON-FORMULARY ITEM 1 UNIT PO ×2 (08:17→21:08)
[2024-12-08] MEDS: PURINETHOL 50 MG PO ×2 (08:18→21:08)
[2024-12-08] MEDS: TOPROL XL 50 MG PO (08:18)
[2024-12-08] MEDS: ASPIR LOW (ENTERIC COATED) 81 MG PO (08:18)
[2024-12-08] MEDS: TYLENOL 650 MG PO (08:54)
--- NOTE | 2024-12-08 09:16 | W.PN.HOSP.TC ---
Today's Communication/Plan
-
Likely need SNF
Tylenol for right shoulder
Holding Lasix
BMP in AM
Assessment / Plan
Assessment / Plan
PE:
Gen-AAOx3, NAD
HEENT-NC, AT, anicteric, clear oral mm
Neck-supple
CV-reg, no M, +S1/S2
Lungs-more air left lung base, left chest wall hematoma/ lump, non tender, mild bruising, not increased in size.
Abd-soft, NT, ND
Musculoskeletal-no edema, no deformity
Skin-warm and dry
Neuro-grossly non-focal
Psych-calm, cooperative
Ms. Abraham is a 89-year-old female with a medical history of atrial fibrillation, HFpEF, and hypertension presenting to the emergency department for evaluation of worsening shortness of breath and cough for past few days. sob worse with exertion.
cough is productive with sometimes white or greenish sputum. she noticed blood tinged in sputum at times. her monitor at home told her that she was in A-fib. She does report intermittent cough over the past 2 months after a hospital admission for
pneumonia. Patient denies any associated chest pain, severe back pain. No fevers or chills. No sick contacts. No recent weight gain. denied fever, chills. denied abdominal pain, n,v,d. denied dysuria or hematuria. Last week she had a fall.
Patient dropped water on the kitchen floor. She slipped and fell. Noted generalized bruising. Denied hitting head. She did not seek medical attention, as she did not have any pain.
# Acute blood loss anemia on chronic anemia from Chronic gI blood loss and anemia of chronic disease ( CKD)
s/p one unit of blood 12/07, consent signed. Pt gets blood transfusion as needed.
History of GI bleeding/ chronic blood loss anemia, diverticulosis
No melena at present time.
#Acute on chronic diastolic heart failure:
-Post Lasix 40 mg IV , changed to oral 20 mg, now on hold starting 12/08 due to SAMIRA,
Also had anemia and hypotension.
-Beta-blockade with metoprolol succinate 50 mg in the morning and 100 mg at night
-Dyspnea improved. sis
-Cardiology recommendations appreciated
# Post thoracentesis chest wall hematoma, no worsening size of hematoma
X ray done twice post procedure, no hemothorax, no pneumothorax.
# Right should pain
Will give Tylenol
# Left pleural effusion:
-Moderate to large appearing on chest x-ray
-Not hypoxic but symptomatic
-s/p successful ultrasound-guided thoracentesis, yielding 650 cc of serosanguineous pleural fluid on 12/06/24. Appreciate IR help.
Elevated troponin, c/w non-IN troponin elevation related to decompensated congestive heart failure.
-Have already peaked. No chest pain
-Continuing home aspirin and statin
# persistent A fib
Hx of GI bleeding, anemia and thrombocytopenia. Continue with aspirin only.
# History of ulcerative colitis status post colectomy/sigmoid resection
Continue mercaptopurine and mesalamine
# CKD stage IIIA
SAMIRA
No retention on bladder scan
Hold Lasix.
Avoid hypotension
Given blood transfusion
# Essential Hypertension-continue beta-blockers
# Hyperlipidemia-continue statin
# History of Peptic ulcer disease
# Cholelithiasis
# History of DVT-not on anticoagulation
# arthritis/DJD's/Osteoporosis/DJD lumbar spine
# Vertigo
# Ex-smoker
Total time spent to see the patient, examine the patient, review data and lab results, discuss treatment plan with patient and nursing staff around 55 minutes
Anticipated Discharge: 24 - 48 hours
Subjective/Interval History
-
Date of Service: December 08, 2024
Mild right should blade discomfort
No chest pain
No sob
Sitting in chair eating breakfast
Objective Data
-
Labs:
Laboratory Results
12/08/24
06:16
WBC 17.3 H
Hgb 8.3 L
Hct 25.7 L
Plt Count 102 L
Sodium 133 L
Potassium 4.6
Chloride 95 L
Carbon Dioxide 25
BUN 55 H
Creatinine 1.9 H
Glucose 93
Calcium 7.6 L
Vital Signs:
Vital Signs
Temp Pulse Resp BP Pulse Ox
97.5 F 84 20 110/48 99
12/08/24 07:40 12/08/24 08:18 12/08/24 07:40 12/08/24 08:18 12/08/24 07:40
I&O
12/07/24 12/08/24 12/09/24
06:59 06:59 06:59
Intake Total 240 / 240 730 / 730
Output Total 200 / 200
Balance 40 / 40 730 / 730
[2024-12-08 10:54] VITALS: BP 108/57; PULSE 74; O2SAT 99
--- NOTE | 2024-12-08 13:59 | W.PN.CARDCBS ---
Addendum entered and electronically signed by Maurice Carlos MD 12/08/24 14:30:
I saw and examined the patient.
The INSPECTOR MATERIALS AND PROCESSES or PA's note was reviewed and I agree with the note.
Comment: General: Well developed, well nourished in NAD.
Neck: Supple, no JVD, HJR, carotids +2 B/L, no bruits bilaterally.
Heart: Non displaced PMI, RRR, no murmurs, No S3, S4, no rubs.
Lungs: Scattered rhonchi at the bases
Extremities: No clubbing, cyanosis or edema bilaterally.
Neuro: Grossly nonfocal, awake, alert and oriented x3.
Creatinine has improved slightly. Will restart Lasix at 20 mg daily. Continue to follow renal function. She is on room air.
Original Note:
Today's Communication / Plan
-
Lasix 20 mg PO daily ordered
Weight probably down, but recorded weights are not correct
Impression / Plan
-
Industrial Registered Nurse: Dr. Ernesto Lincoln
PCP: Dr Tony Carrillo
Assessment:
-Presented 12/04/2024 with progressive dyspnea on exertion and shortness of breath over 2 to 3 days
-Left pleural effusion
s/p left thoracentesis 650 cc serosanguineous fluid 12/06/24
-Acute HFpEF
-Elevated troponin, peak 1.040
-Persistent atrial fibrillation
history of PVI 2015
not chronically anticoagulated due to GI bleed with blood loss anemia
-Klebsiella Pneumoniae sepsis due to UTI
-HTN
-SAMIRA on CKD 3a
-Dyslipidemia
-h/o GIB
-h/o DVT
-Ulcerative colitis
-Ambulatory dysfunction
-Vertigo
-Severe degenerative lumbar disc disease/osteoarthritis
NATHALY 06/25/2016: Ejection fraction 55�60%, mild to moderate MR, moderate to moderate TR, minimal atherosclerotic plaque in descending thoracic aorta
Echocardiogram 12/05/2014: Ejection fraction 60%, mild to moderate concentric LVH, mild to moderate TR, mild to moderate MR
Echocardiogram February 2011: LVEF 60-65% with no significant valvular disease.
Nuclear stress test February 2021: shows no significant ischemia.
Echo 01/03/23: EF 65-70%, moderate MR, moderate TR
Echo 02/17/23: EF 60 to 65%, mild concentric LVH, moderate MR, mild TR, PAP 40 to 45 mmHg, pleural effusion present, color flow pattern suggestive of small PFO
Echo 12/06/24: EF 55 to 60%. Mild septal hypertrophy. No regional wall motion abnormality. Mildly dilated left atrium(35-41 mL/m2). Mildly dilated right atrium. Mild to moderate MR. Mild AI. Moderate TR with PAP 32 mmHg. No pericardial
effusion
Plan:
-Weight is up and down, being weighed with bed scale, it's not correct.
-I&Os not being recorded.
-Cre up to 2.0 on 12/07/24, but improved to 1.9 on 12/08/24.
-Diuresed with Lasix 40 mg IV daily and then 20 mg IV daily before transitioning to Lasix 20 mg PO daily on 12/08/24 which was also her outpatient dose.
-EF 55% by echo 12/06/24
-Outpatient dose of Toprol XL 50 mg AM and 100 mg PM daily has been ordered.
-Patient is not chronically on GWYN/ARB/ARNI/aldosterone antagonist due to SAMIRA on CKD 3a
-Hgb 8.1 on 12/07/24 and patient was given 1 unit PRBCs. Hgb 8.3 on 12/08/24.
-Patient had thoracentesis with serosanguineous drainage plus an area of hematoma at drainage site postprocedure 12/06/24.
-Troponin peaked at 1.040 and was managed as a nonischemic myocardial injury Troponin elevation
-Patient with persistent Afib. Patient is not chronically anticoagulated due to h/o GIB, anemia and thrombocytopenia. Patient has not been evaluated for watchman.
HPI 12/05/2024:
She is an 89-year-old female with a medical history significant for heart failure with preserved ejection fraction, paroxysmal atrial fibrillation and hypertension who presented to the emergency department with progressive dyspnea on exertion and
shortness of breath over 2 to 3 days. There has been no chest pain. No fevers chills or night sweats.
Chest x-ray shows moderate left-sided pleural effusion and to my interpretation there is some vascular congestion
She is in atrial fibrillation with controlled ventricular rate.
Serial electrocardiograms have demonstrated atrial fibrillation, cannot exclude anterior septal infarct age undetermined with no serial changes of ischemia
proBNP is 1810
Troponin values are 0.048, 1.03, 1.04, 0.835
Progress Note - Industrial Registered Nurse
Subjective
Date of Service: December 08, 2024
No chest pain, breathing is better
Objective
Labs:
12/08/24 06:16
12/08/24 06:16
Labs
Hgb 8.3 g/dL (12.0-16.0) L 12/08/24 06:16
Hct 25.7 % (37.0-47.0) L 12/08/24 06:16
Plt Count 102 10^3/uL (130-400) L 12/08/24 06:16
Sodium 133 mmol/L (135-145) L 12/08/24 06:16
Potassium 4.6 mmol/L (3.5-5.1) 12/08/24 06:16
BUN 55 mg/dl (7-17) H 12/08/24 06:16
Creatinine 1.9 mg/dL (0.6-1.0) H 12/08/24 06:16
Glucose 93 mg/dl (70-99) 12/08/24 06:16
Vital Signs and I&O:
Vital Signs
Temp Pulse Resp BP Pulse Ox
97.5 F 84 20 110/48 99
12/08/24 07:40 12/08/24 08:18 12/08/24 07:40 12/08/24 08:18 12/08/24 07:40
Vital Signs
Temp Pulse Resp BP Pulse Ox
97.5 F 84 20 110/48 99
12/08/24 07:40 12/08/24 08:18 12/08/24 07:40 12/08/24 08:18 12/08/24 07:40
Intake & Output
12/06/24 12/07/24 12/08/24 12/09/24
06:59 06:59 06:59 06:59
Intake Total 960 / 960 240 / 240 730 / 730
Output Total 800 / 800 200 / 200
Balance 160 / 160 40 / 40 730 / 730
Physical Exam
Physical Exam
GEN: AAOx3
HEENT: mmm
LUNGS: RA. No audible wheeze
CV: Afib on tele.
ABD: ND
EXT: No edema B/L
NEURO: Gross non-focal
SKIN: No rash
[2024-12-08 15:22] VITALS: BP 130/53
--- NOTE | 2024-12-08 15:59 | CM ---
Addendum entered by Stacey Waldron 12/09/24 10:03:
CM contacted by Dr. Benjamin; She spoke with Fara's daughter who does not feel that Fara can return directly home and requests SNF transfer. Fara is to have CT scan today due to abdominal pain. Discharge is likely over the weekend; will need SNF
authorization once facilities of choice and available bed(s) are identified.
Original Note:
CM met with Fara to discuss discharge planning. Therapies are recommending SNF, however Fara is not agreeable to SNF. She has been in a SNF for rehab before and prefers to have home care services where she feels she gets more individual
attention.
She is known to [facility] in the past as well as [facility]. She requests [facility] for home care. CM will notify [facility] Liaison.
Plan: Discharge to home with [facility]. Family will provide transport at discharge.
[2024-12-08] MEDS: TOPROL XL 100 MG PO (17:38)
[2024-12-08] MEDS: LIPITOR 20 MG PO (21:08)
[2024-12-08 23:57] VITALS: BP 127/54
[2024-12-09] MEDS: MYLICON 80 MG PO (04:03)
[2024-12-09 06:00] VITALS: BMI 24.4
[2024-12-09 07:04] VITALS: BP 133/75
[2024-12-09 07:23] LABS: Blood Urea Nitrogen 49 mg/dl (7-17); Calcium 7.7 mg/dl (8.4-10.2); Carbon Dioxide 25 mmol/L (22-30); Chloride 98 mmol/L (98-107); Estimated Creatinine Clearance 22 ml/min; Glucose 101 mg/dl (70-99); Potassium 4.1 mmol/L (3.5-5.1); Sodium 133 mmol/L (135-145); eGFR 30.64
[2024-12-09] MEDS: TOPROL XL 50 MG PO (08:48)
[2024-12-09] MEDS: ASPIR LOW (ENTERIC COATED) 81 MG PO (08:48)
[2024-12-09] MEDS: PURINETHOL 50 MG PO ×2 (08:48→21:04)
[2024-12-09] MEDS: NON-FORMULARY ITEM 1 UNIT PO ×2 (08:48→21:04)
[2024-12-09] MEDS: ZOFRAN 4 MG IV (08:49)
[2024-12-09 09:02] LABS: Hematocrit 25.7 % (37.0-47.0); Hemoglobin 8.2 g/dL (12.0-16.0); Mean Corp Hgb Conc. 31.9 g/dL (33.0-37.0); Mean Corpuscular Hgb 30.3 pg (27.0-31.0); Mean Corpuscular Volume 94.8 fL (81.0-99.0); Red Blood Cell Count 2.71 10^6/uL (4.20-5.40); Red Cell Dist. Width 19.9 % (11.5-14.5); White Blood Cell Count 19.9 10^3/uL (4.8-10.8)
--- NOTE | 2024-12-09 09:09 | W.PN.CARDCBS ---
Addendum entered and electronically signed by Miguel A Montanez DO 12/09/24 17:06:
I saw and examined the patient.
The Child Specialist's note was reviewed and I agree with the note.
Comment:
Plan:
Resume outpt lasix 20 mg daily.
s/p thoracentesis
EF is preserved
Toprol resumed
Patient is not chronically on GWYN/ARB/ARNI/aldosterone antagonist due to SAMIRA on CKD 3a
Cont medical therapy of nonMI trop
She has hx of persistent Afib. Patient is not chronically anticoagulated due to h/o GIB, anemia and thrombocytopenia.
Getting evaluated for SNF
Please recall if needed.
Original Note:
Today's Communication / Plan
-
Left pleural effusion on admission was exudative by Light's criteria
Restart Lasix 20 mg daily today
53 min face to face and coordination of care
Impression / Plan
-
Allopathic Doctor: Dr. Ernesto Lincoln
PCP: Dr Tony Carrillo
Assessment:
-Presented 12/04/2024 with progressive dyspnea on exertion and shortness of breath over 2 to 3 days
-Left pleural effusion
s/p left thoracentesis 650 cc serosanguineous fluid 12/06/24
likely exudative based on Light's criteria
-Acute HFpEF
-Elevated troponin, peak 1.040
-Persistent atrial fibrillation
history of PVI 2015
not chronically anticoagulated due to GI bleed with blood loss anemia
-Klebsiella Pneumoniae sepsis due to UTI
-HTN
-SAMIRA on CKD 3a
-Dyslipidemia
-h/o GIB
-h/o DVT
-Ulcerative colitis
-Ambulatory dysfunction
-Vertigo
-Severe degenerative lumbar disc disease/osteoarthritis
Nuclear stress test February 2021: shows no significant ischemia.
Echo February 2011: LVEF 60-65% with no significant valvular disease.
Echocardiogram 12/05/14: Ejection fraction 60%, mild to moderate concentric LVH, mild to moderate TR, mild to moderate MR
NATHALY 06/25/16: Ejection fraction 55�60%, mild to moderate MR, moderate to moderate TR, minimal atherosclerotic plaque in descending thoracic aorta
Echo 01/03/23: EF 65-70%, moderate MR, moderate TR
Echo 02/17/23: EF 60 to 65%, mild concentric LVH, moderate MR, mild TR, PAP 40 to 45 mmHg, pleural effusion present, color flow pattern suggestive of small PFO
Echo 12/06/24: EF 55 to 60%. Mild septal hypertrophy. No regional wall motion abnormality. Mildly dilated left atrium(35-41 mL/m2). Mildly dilated right atrium. Mild to moderate MR. Mild AI. Moderate TR with PAP 32 mmHg. No pericardial
effusion
Plan:
-Patient with BARRIENTOS and left pleural effusion on admission. pro-BNP was 1810. Patient with diuresed with Lasix 40 mg IV daily and then 20 mg IV daily. Cre bumped to 2.0 on 12/07/24 and Lasix held. Pleural effusion is exudative based on Light's
criteria. Rechecked pro-BNP 12/09/24 and up a bit to 2740.
-Recommend restarting outpatient dose of Lasix 20 mg PO daily 12/09/24.
-EF 55% by echo 12/06/24
-Outpatient dose of Toprol XL 50 mg AM and 100 mg PM daily has been ordered.
-Patient is not chronically on GWYN/ARB/ARNI/aldosterone antagonist due to SAMIRA on CKD 3a
-Hgb 8.1 on 12/07/24 and patient was given 1 unit PRBCs. Hgb 8.2 on 12/09/24.
-Troponin peaked at 1.040 and was managed as a nonischemic myocardial injury Troponin elevation
-Patient with persistent Afib. Patient is not chronically anticoagulated due to h/o GIB, anemia and thrombocytopenia. Patient has not been evaluated for watchman.
HPI 12/05/2024: She is an 89-year-old female with a medical history significant for heart failure with preserved ejection fraction, paroxysmal atrial fibrillation and hypertension who presented to the emergency department with progressive dyspnea on
exertion and shortness of breath over 2 to 3 days. There has been no chest pain. No fevers chills or night sweats. Chest x-ray shows moderate left-sided pleural effusion and to my interpretation there is some vascular congestion. She is in atrial
fibrillation with controlled ventricular rate. Serial electrocardiograms have demonstrated atrial fibrillation, cannot exclude anterior septal infarct age undetermined with no serial changes of ischemia. proBNP is 1810. Troponin values are 0.048,
1.03, 1.04, 0.835
Progress Note - Allopathic Doctor
Subjective
Date of Service: December 09, 2024
Complains of upper abdominal pain
Objective
Labs:
12/09/24 06:26
12/09/24 06:26
Labs
Hgb 8.2 g/dL (12.0-16.0) L 12/09/24 06:26
Hct 25.7 % (37.0-47.0) L 12/09/24 06:26
Plt Count 102 10^3/uL (130-400) L 12/08/24 06:16
Sodium 133 mmol/L (135-145) L 12/09/24 06:26
Potassium 4.1 mmol/L (3.5-5.1) 12/09/24 06:26
BUN 49 mg/dl (7-17) H 12/09/24 06:26
Creatinine 1.6 mg/dL (0.6-1.0) H 12/09/24 06:26
Glucose 101 mg/dl (70-99) H 12/09/24 06:26
Vital Signs and I&O:
Vital Signs
Temp Pulse Resp BP Pulse Ox
97.6 F 65 18 127/54 98
12/09/24 07:04 12/09/24 07:04 12/09/24 07:04 12/09/24 08:48 12/09/24 07:04
Vital Signs
Temp Pulse Resp BP Pulse Ox
97.6 F 65 18 127/54 98
12/09/24 07:04 12/09/24 07:04 12/09/24 07:04 12/09/24 08:48 12/09/24 07:04
Intake & Output
12/07/24 12/08/24 12/09/24 12/10/24
06:59 06:59 06:59 06:59
Intake Total 240 / 240 730 / 730 360 / 360
Output Total 200 / 200
Balance 40 / 40 730 / 730 360 / 360
Physical Exam
Physical Exam
GEN: AAOx3
HEENT: mmm
LUNGS: RA. No audible wheeze
CV: Afib on tele.
ABD: ND
EXT: No edema B/L
NEURO: Gross non-focal
SKIN: No rash
--- NOTE | 2024-12-09 09:09 | VNURNOTE ---
Home Health Liaison met with patient at bedside to discuss [facility] nurse/therapy, visits, schedule and homebound status. Patient is familiar with [facility]. Patient is agreeable and understands that visits at home will be 2-3 x per week to assess and
teach medical management. [facility] brochure provided with contact information. Patient is aware that [facility] will contact them for start of care in 1-2 days after discharge from .
[facility] referral completed in [facility].
--- NOTE | 2024-12-09 09:35 | W.PN.HOSP.TC ---
Today's Communication/Plan
-
Patient reports abdominal issue(outlined in note), persistent leukocytosis
Will do CT chest/abdomen/pelvis with oral contrast
Discussed with daughter. I do not think patient can go home, will need to long-term placement
Assessment / Plan
Assessment / Plan
PE:
Gen-AAOx3, NAD
HEENT-NC, AT, anicteric, clear oral mm, poor dental hygiene noted
Neck-supple
CV-reg, no M, +S1/S2
Lungs-more air left lung base, left chest wall hematoma/ lump, non tender, mild bruising, not increased in size.
Abd-soft, NT, ND
Musculoskeletal-no edema, no deformity
Skin-warm and dry
Neuro-grossly non-focal
Psych-calm, cooperative
Ms. Abraham is a 89-year-old female with a medical history of atrial fibrillation, HFpEF, and hypertension presenting to the emergency department for evaluation of worsening shortness of breath and cough for past few days.
# Patient reports abdominal issue today described as(my belly feels more sensitive, I feel I am having ulcerative colitis flareup)
She denies nausea or vomiting. No tenderness on abdominal examination or distention. She reports loose stools.
Will do scan of the abdomen and pelvis with oral contrast, unable to give intravenous due to renal insufficiency.
Since she is having leukocytosis, I think it is important to rule out colitis. Will also extend to the chest due to persistent leukocytosis.
-History of ulcerative colitis status post colectomy/sigmoid resection
Continue mercaptopurine and mesalamine for now pending CT scan result
# Acute blood loss anemia on chronic anemia from Chronic gI blood loss and anemia of chronic disease ( CKD)
s/p one unit of blood 12/07, consent signed. Pt gets blood transfusion as needed.
History of GI bleeding/ chronic blood loss anemia, diverticulosis
No melena at present time.
# CKD stage IIIA
SAMIRA, creatinine is coming down.
No retention on bladder scan
Holding Lasix.
Avoid hypotension
Given blood transfusion
#Acute on chronic diastolic heart failure:
-Post Lasix 40 mg IV , changed to oral 20 mg, now on hold starting 12/08 due to SAMIRA,
Also had anemia and hypotension.
-Beta-blockade with metoprolol succinate 50 mg in the morning and 100 mg at night
-Dyspnea improved. sis
-Cardiology recommendations appreciated
# Post thoracentesis chest wall hematoma, no worsening size of hematoma
X ray done twice post procedure, no hemothorax, no pneumothorax.
# Right should pain
Resolved
# Left pleural effusion:
-Moderate to large appearing on chest x-ray
-Not hypoxic but symptomatic
-s/p successful ultrasound-guided thoracentesis, yielding 650 cc of serosanguineous pleural fluid on 12/06/24. Appreciate IR help.
Elevated troponin, c/w non-KS troponin elevation related to decompensated congestive heart failure.
-Have already peaked. No chest pain
-Continuing home aspirin and statin
# persistent A fib
Hx of GI bleeding, anemia and thrombocytopenia. Continue with aspirin only.
# Essential Hypertension-continue beta-blockers
# Hyperlipidemia-continue statin
# History of Peptic ulcer disease
# Cholelithiasis
# History of DVT-not on anticoagulation
# arthritis/DJD's/Osteoporosis/DJD lumbar spine
# Vertigo
# Ex-smoker
Total time spent to see the patient, examine the patient, review data and lab results, discuss treatment plan with patient and nursing staff around 55 minutes
Anticipated Discharge: > 48 hours
Subjective/Interval History
-
Date of Service: December 09, 2024
No chest pain
No sob
She reports weakness
She reports abdominal problem as more sensitive, feels she has US flare up
Objective Data
-
Labs:
Laboratory Results
12/09/24
06:26
WBC 19.9 H
Hgb 8.2 L
Hct 25.7 L
Plt Count Pending
Sodium 133 L
Potassium 4.1
Chloride 98
Carbon Dioxide 25
BUN 49 H
Creatinine 1.6 H
Glucose 101 H
Calcium 7.7 L
Vital Signs:
Vital Signs
Temp Pulse Resp BP Pulse Ox
97.6 F 65 18 127/54 98
12/09/24 07:04 12/09/24 07:04 12/09/24 07:04 12/09/24 08:48 12/09/24 07:04
I&O
12/08/24 12/09/24 12/10/24
06:59 06:59 06:59
Intake Total 730 / 730 360 / 360
Balance 730 / 730 360 / 360
[2024-12-09 10:54] LABS: Platelet Count 101 10^3/uL (130-400)
[2024-12-09] MEDS: OMNIPAQUE 50 ML PO (11:45)
[2024-12-09 11:47] LABS: NT-proBNP 2740 pg/ml
[2024-12-09 15:35] VITALS: BP 147/66
[2024-12-09] MEDS: TOPROL XL 100 MG PO (17:11)
--- NOTE | 2024-12-09 17:25 | CM ---
CM met with Fara to discuss transfer to SNF. She is adamantly against going to a facility and wants home care where she feels she gets individual nursing and therapy services, rather than having a group experience. CM and RN encouraged her to
discuss with her daughter, as daughter has spoken with Dr. Benjamin who also feels SNF is an appropriate setting for pt to recover and become stronger to be at home.
Plan: RODOLFO continues to follow for discharge planning with strong recommendation for SNF transfer.
[2024-12-09] MEDS: LIPITOR 20 MG PO (21:04)
[2024-12-09 23:43] VITALS: BP 131/53
[2024-12-10] VITALS (8 sets, daily range): BP systolic 99–133; BP diastolic 46–59; PULSE 81; O2SAT 98; BMI 24.4
[2024-12-10 06:41] LABS: Hematocrit 25.4 % (37.0-47.0); Hemoglobin 7.9 g/dL (12.0-16.0); Mean Corp Hgb Conc. 31.1 g/dL (33.0-37.0); Mean Corpuscular Hgb 29.9 pg (27.0-31.0); Mean Corpuscular Volume 96.2 fL (81.0-99.0); Mean Platelet Volume 12.8 fL (7.4-10.4); Platelet Count 102 10^3/uL (130-400); Red Blood Cell Count 2.64 10^6/uL (4.20-5.40); Red Cell Dist. Width 20.1 % (11.5-14.5); White Blood Cell Count 20.1 10^3/uL (4.8-10.8)
[2024-12-10 06:52] LABS: ALT (SGPT) 40 U/L (0-35); AST (SGOT) 75 U/L (14-36); Albumin 3.1 g/dl (3.5-5.0); Alkaline Phosphatase 136 U/L (38-126); Blood Urea Nitrogen 42 mg/dl (7-17); Calcium 7.9 mg/dl (8.4-10.2); Carbon Dioxide 25 mmol/L (22-30); Chloride 98 mmol/L (98-107); Estimated Creatinine Clearance 26 ml/min; Glucose 99 mg/dl (70-99); Potassium 3.9 mmol/L (3.5-5.1); Sodium 131 mmol/L (135-145); eGFR 35.96
[2024-12-10] MEDS: ASPIR LOW (ENTERIC COATED) 81 MG PO (10:05)
[2024-12-10] MEDS: PURINETHOL 50 MG PO ×2 (10:05→21:10)
[2024-12-10] MEDS: TOPROL XL 50 MG PO (10:05)
[2024-12-10] MEDS: NON-FORMULARY ITEM 2 UNIT PO ×2 (10:05→21:10)
[2024-12-10] MEDS: NON-FORMULARY ITEM PO (10:07)
--- NOTE | 2024-12-10 11:03 | CM ---
CM spoke with Fara's daughter this am to discuss transfer to SNF. Fara is agreeable to short term SNF transfer after speaking with her daughter.
Referrals sent via [facility] to [facility] in [place] and [facility].
SNF authorization will need to be obtained when pt is closer to discharge.
Plan: CM to follow for transfer to SNF when medically cleared.
[2024-12-10] MEDS: LASIX 40 MG IV (11:05)
--- NOTE | 2024-12-10 11:05 | W.PN.HOSP.TC ---
Today's Communication/Plan
-
One unit of RBCs
IV Lasix today
C diff test
Increase dose of Mesalamine
Blood culture
Agreed to go to SNF
Assessment / Plan
Assessment / Plan
Physical exam:
Gen-AAOx3, NAD
HEENT-NC, AT, anicteric, clear oral mm, poor dental hygiene noted
Neck-supple
CV-reg, no M, +S1/S2
Lungs-more air left lung base, left chest wall hematoma/ lump, non tender, mild bruising, not increased in size.
Abd-soft, NT, ND
Musculoskeletal-no edema, no deformity
Skin-warm and dry
Neuro-grossly non-focal
Psych-calm, cooperative
Ms. Abraham is a 89-year-old female with a medical history of atrial fibrillation, HFpEF, and hypertension presenting to the emergency department for evaluation of worsening shortness of breath and cough for past few days.
# Patient denies nausea, reports loose stools, feels her colitis is flaring up
CT abdomen and pelvis with oral contrast, did not show colitis or edema of the wall. I will increase mesalamine to 2.4 gm BID
Will check stool for C -Diff, do blood culture since WBC around 20, but ongoing hematoma could be the reason.
No abdominal distension or tenderness on exam
-History of ulcerative colitis status post colectomy/sigmoid resection
Continue mercaptopurine
# Acute blood loss anemia on chronic anemia from Chronic gI blood loss and anemia of chronic disease ( CKD)
s/p one unit of blood 12/07, consent signed. Pt gets blood transfusion as needed.
HGB still low around 7.9. CT Chest showed 10X12 cm hematoma, will give another unit of RBCs.
History of GI bleeding/ chronic blood loss anemia, diverticulosis. No melena at present time.
# Leukocytosis, started after the hematoma on 12/06
Will do blood culture but it is likely related to hematoma
# CKD stage IIIA
SAMIRA, creatinine is coming down.
No retention on bladder scan
Give IV Lasix while getting blood transfusion.
Avoid hypotension
#Hyponatremia
Mild
#Acute on chronic diastolic heart failure:
-Post Lasix 40 mg IV , changed to oral 20 mg, now on hold starting 12/08 due to SAMIRA,
Also had anemia and hypotension.
-Beta-blockade with metoprolol succinate 50 mg in the morning and 100 mg at night
-Dyspnea improved. sis
-Cardiology recommendations appreciated
# Post thoracentesis chest wall hematoma, no worsening size of hematoma
X ray done twice post procedure, no hemothorax, no pneumothorax.
# Right should pain
Resolved
# Left pleural effusion:
-Moderate to large appearing on chest x-ray
-Not hypoxic but symptomatic
-s/p successful ultrasound-guided thoracentesis, yielding 650 cc of serosanguineous pleural fluid on 12/06/24. Appreciate IR help.
Elevated troponin, c/w non-[place] troponin elevation related to decompensated congestive heart failure.
-Have already peaked. No chest pain
-Continuing home aspirin and statin
# persistent A fib
Hx of GI bleeding, anemia and thrombocytopenia. Continue with aspirin only.
# Essential Hypertension-continue beta-blockers
# Hyperlipidemia-continue statin
# History of Peptic ulcer disease
# Cholelithiasis
# History of DVT-not on anticoagulation
# arthritis/DJD's/Osteoporosis/DJD lumbar spine
# Vertigo
# Ex-smoker
Total time spent to see the patient, examine the patient, review data and lab results, discuss treatment plan with patient and nursing staff around 55 minutes
Anticipated Discharge: 24 - 48 hours
Subjective/Interval History
-
Date of Service: December 10, 2024
She denies sob, cough, no nausea
She is tolerating diet well
No abdominal pain
Objective Data
-
Labs:
Laboratory Results
01/24/25
05:51
WBC 20.1 H
Hgb 7.9 L
Hct 25.4 L
Plt Count 102 L
Sodium 131 L
Potassium 3.9
Chloride 98
Carbon Dioxide 25
BUN 42 H
Creatinine 1.4 H
Glucose 99
Calcium 7.9 L
Total Bilirubin 3.0 H
AST 75 H
ALT 40 H
Alkaline Phosphatase 136 H
Vital Signs:
Vital Signs
Temp Pulse Resp BP Pulse Ox
98.1 F 72 18 120/46 97
12/10/24 10:15 12/10/24 10:15 12/10/24 10:15 12/10/24 10:15 12/10/24 07:55
I&O
12/09/24 12/10/24 12/11/24
06:59 06:59 06:59
Intake Total 360 / 360 840 / 840 240 / 240
Balance 360 / 360 840 / 840 240 / 240
[2024-12-10] MEDS: TOPROL XL 100 MG PO (17:16)
[2024-12-10] MEDS: ZOFRAN 4 MG IV (17:17)
[2024-12-10 17:26] LABS: Glucose - Point of Care 133 mg/dl (70-99)
[2024-12-10] MEDS: LIPITOR 20 MG PO (21:10)
[2024-12-11 06:00] VITALS: BMI 24.5
[2024-12-11 07:24] LABS: Hematocrit 29.3 % (37.0-47.0); Hemoglobin 9.4 g/dL (12.0-16.0); Mean Corp Hgb Conc. 32.1 g/dL (33.0-37.0); Mean Corpuscular Volume 93.6 fL (81.0-99.0); Mean Platelet Volume 12.5 fL (7.4-10.4); Platelet Count 79 10^3/uL (130-400); Red Blood Cell Count 3.13 10^6/uL (4.20-5.40); Red Cell Dist. Width 19.2 % (11.5-14.5); White Blood Cell Count 20.4 10^3/uL (4.8-10.8)
[2024-12-11 07:55] VITALS: BP 126/63
[2024-12-11 08:00] LABS: Blood Urea Nitrogen 35 mg/dl (7-17); Calcium 7.4 mg/dl (8.4-10.2); Carbon Dioxide 27 mmol/L (22-30); Chloride 99 mmol/L (98-107); Estimated Creatinine Clearance 30 ml/min; Glucose 84 mg/dl (70-99); Potassium 3.4 mmol/L (3.5-5.1); Sodium 134 mmol/L (135-145); eGFR 43.27
[2024-12-11] MEDS: ASPIR LOW (ENTERIC COATED) 81 MG PO (09:19)
[2024-12-11] MEDS: NON-FORMULARY ITEM 2 UNIT PO ×2 (09:20→21:06)
[2024-12-11] MEDS: TOPROL XL 50 MG PO (09:21)
[2024-12-11] MEDS: PURINETHOL 50 MG PO ×2 (09:21→21:06)
[2024-12-11] MEDS: KCL ELIXIR 40 MEQ PO (09:22)
[2024-12-11] MEDS: FLUSH (NSS) 1 FLUSH IV (09:22)
--- NOTE | 2024-12-11 09:44 | W.PN.HOSP.TC ---
Today's Communication/Plan
-
dc planning
Assessment / Plan
Assessment / Plan
Physical exam:
Gen-AAOx3, NAD
HEENT-NC, AT, anicteric, clear oral mm, poor dental hygiene noted
Neck-supple
CV-reg, no M, +S1/S2
Lungs-more air left lung base, left chest wall hematoma/ lump, non tender, mild bruising, not increased in size.
Abd-soft, NT, ND
Musculoskeletal-no edema, no deformity
Skin-warm and dry
Neuro-grossly non-focal
Psych-calm, cooperative
Ms. Abraham is a 89-year-old female with a medical history of atrial fibrillation, HFpEF, and hypertension presenting to the emergency department for evaluation of worsening shortness of breath and cough for past few days.
# Patient denies nausea, reports loose stools, feels her colitis is flaring up
CT abdomen and pelvis with oral contrast, did not show colitis or edema of the wall. I will increase mesalamine to 2.4 gm BID
Will check stool for C -Diff, do blood culture since WBC around 20, but ongoing hematoma could be the reason.
No abdominal distension or tenderness on exam
-History of ulcerative colitis status post colectomy/sigmoid resection
Continue mercaptopurine
# Acute blood loss anemia ( post thoracentesis skin 10X12 cm hematoma) on chronic anemia from Chronic GI blood loss and anemia of chronic disease ( CKD)
s/p two units of blood 12/07 & 12/10, consent signed. Pt gets blood transfusion as needed.
History of GI bleeding/ chronic blood loss anemia, diverticulosis. No melena at present time.
# Leukocytosis, started after the hematoma on 12/06
Await blood culture but it is likely related to hematoma as pt is not acutely ill looking, no fevers.
# CKD stage IIIA
SAMIRA, creatinine is coming down.
No retention on bladder scan
Give IV Lasix while getting blood transfusion.
Avoid hypotension
# hypokalemia, replace
#Hyponatremia
Mild
#Acute on chronic diastolic heart failure:
-Post Lasix 40 mg IV , changed to oral 20 mg, now on hold starting 12/08 due to SAMIRA,
Also had anemia and hypotension.
-Beta-blockade with metoprolol succinate 50 mg in the morning and 100 mg at night
-Dyspnea improved. sis
-Cardiology recommendations appreciated
# Post thoracentesis chest wall hematoma, no worsening size of hematoma
X ray done twice post procedure, no hemothorax, no pneumothorax.
# Right should pain
Resolved
# Left pleural effusion:
-Moderate to large appearing on chest x-ray
-Not hypoxic but symptomatic
-s/p successful ultrasound-guided thoracentesis, yielding 650 cc of serosanguineous pleural fluid on 12/06/24. Appreciate IR help.
Elevated troponin, c/w non-AL troponin elevation related to decompensated congestive heart failure.
-Have already peaked. No chest pain
-Continuing home aspirin and statin
# persistent A fib
Hx of GI bleeding, anemia and thrombocytopenia. Continue with aspirin only.
# Essential Hypertension-continue beta-blockers
# Hyperlipidemia-continue statin
# History of Peptic ulcer disease
# Cholelithiasis
# History of DVT-not on anticoagulation
# arthritis/DJD's/Osteoporosis/DJD lumbar spine
# Vertigo
# Ex-smoker
Total time spent to see the patient, examine the patient, review data and lab results, discuss treatment plan with patient and nursing staff around 55 minutes
Anticipated Discharge: Within 24 hours
Subjective/Interval History
-
Date of Service: December 11, 2024
Feels better
No diarrhea
No abd pain or sob or chest pain
Objective Data
-
Labs:
Laboratory Results
12/11/24
06:39
WBC 20.4 H
Hgb 9.4 L
Hct 29.3 L
Plt Count 79 L D
Sodium 134 L
Potassium 3.4 L
Chloride 99
Carbon Dioxide 27
BUN 35 H
Creatinine 1.2 H
Glucose 84
Calcium 7.4 L
Vital Signs:
Vital Signs
Temp Pulse Resp BP Pulse Ox
97.5 F 71 18 126/63 98
12/11/24 07:55 12/11/24 09:21 12/11/24 07:55 12/11/24 09:21 12/11/24 07:55
I&O
12/10/24 12/11/24 12/12/24
06:59 06:59 06:59
Intake Total 840 / 840 1450 / 1450 240 / 240
Balance 840 / 840 1450 / 1450 240 / 240
[2024-12-11] MEDS: ZOFRAN 4 MG IV (13:01)
[2024-12-11 15:36] VITALS: BP 131/59
[2024-12-11] MEDS: TOPROL XL 100 MG PO (18:25)
[2024-12-11] MEDS: LIPITOR 20 MG PO (21:06)
[2024-12-11 23:01] VITALS: BP 116/53
[2024-12-12 06:00] VITALS: BMI 24.5
[2024-12-12 07:28] VITALS: BP 128/57
[2024-12-12 08:28] VITALS: BP 128/57
[2024-12-12] MEDS: PURINETHOL 50 MG PO ×2 (09:32→20:06)
[2024-12-12] MEDS: NON-FORMULARY ITEM 2 UNIT PO ×2 (09:32→20:04)
[2024-12-12] MEDS: ASPIR LOW (ENTERIC COATED) 81 MG PO (09:33)
[2024-12-12] MEDS: TOPROL XL 50 MG PO (09:33)
[2024-12-12] MEDS: FLUSH (NSS) 1 FLUSH IV (09:35)
--- NOTE | 2024-12-12 11:34 | W.PN.HOSP.TC ---
Today's Communication/Plan
-
Discussed with case checker, await bed availability
Resume oral Lasix
CBC& BMP in AM
Assessment / Plan
Assessment / Plan
Physical exam:
Gen-AAOx3, NAD
HEENT-NC, AT, anicteric, clear oral mm, poor dental hygiene noted
Neck-supple
CV-reg, no M, +S1/S2
Lungs-more air left lung base, left chest wall hematoma/ lump, non tender, mild bruising, not increased in size.
Abd-soft, NT, ND
Musculoskeletal-no edema, no deformity
Skin-warm and dry
Neuro-grossly non-focal
Psych-calm, cooperative
Ms. Abraham is a 89-year-old female with a medical history of atrial fibrillation, HFpEF, and hypertension presenting to the emergency department for evaluation of worsening shortness of breath and cough for past few days.
# Patient denies nausea,
Staff reports formed BM, nonbloody.
Patient felt her colitis was flaring up
CT abdomen and pelvis with oral contrast, did not show colitis or edema of the wall. Increased mesalamine to 2.4 gm BID, can go back to usual one tablet BID upon discharge.
Negative C -Diff, negative blood culture
WBC was high, likely due to ongoing hematoma reaction.
No abdominal distension or tenderness on exam
-History of ulcerative colitis status post colectomy/sigmoid resection
Continue mercaptopurine
# Acute blood loss anemia ( post thoracentesis skin 10X12 cm hematoma) on chronic anemia from Chronic GI blood loss and anemia of chronic disease ( CKD)
s/p two units of blood 12/07 & 12/10, consent signed. Pt gets blood transfusion as needed.
History of GI bleeding/ chronic blood loss anemia, diverticulosis. No melena at present time.
# Leukocytosis, started after the hematoma on 12/06
Negative blood culture but it is likely related to hematoma as pt is not acutely ill looking, no fevers.
# CKD stage IIIA
SAMIRA, creatinine is coming down.
No retention on bladder scan
Given IV Lasix while getting blood transfusion. Resume daily oral Lasix.
Avoid hypotension
# hypokalemia, replaced
#Hyponatremia
Mild
#Acute on chronic diastolic heart failure:
-Post Lasix 40 mg IV , changed to oral 20 mg. Lasix was held shortly for SAMIRA.
-Beta-blockade with metoprolol succinate 50 mg in the morning and 100 mg at night
-Dyspnea improved. sis
-Cardiology recommendations appreciated
# Post thoracentesis chest wall hematoma, no worsening size of hematoma
X ray done twice post procedure, no hemothorax, no pneumothorax.
# Right should pain
Resolved
# Left pleural effusion:
-Moderate to large appearing on chest x-ray
-Not hypoxic but symptomatic
-s/p successful ultrasound-guided thoracentesis, yielding 650 cc of serosanguineous pleural fluid on 12/06/24. Appreciate IR help.
Elevated troponin, c/w non-RI troponin elevation related to decompensated congestive heart failure.
-Have already peaked. No chest pain
-Continuing home aspirin and statin
# persistent A fib
Hx of GI bleeding, anemia and thrombocytopenia. Continue with aspirin only.
# Essential Hypertension-continue beta-blockers
# Hyperlipidemia-continue statin
# History of Peptic ulcer disease
# Cholelithiasis
# History of DVT-not on anticoagulation
# arthritis/DJD's/Osteoporosis/DJD lumbar spine
# Vertigo
# Ex-smoker
Total time spent to see the patient, examine the patient, review data and lab results, discuss treatment plan with patient and nursing staff around 55 minutes
Anticipated Discharge: Within 24 hours
Subjective/Interval History
-
Date of Service: December 12, 2024
No chest pain
No abd pain
No nausea
Objective Data
-
Vital Signs:
Vital Signs
Temp Pulse Resp BP Pulse Ox
97.4 F 67 15 128/57 94
12/12/24 07:28 12/12/24 09:33 12/12/24 07:28 12/12/24 09:33 12/12/24 09:00
I&O
12/11/24 12/12/24 12/13/24
06:59 06:59 06:59
Intake Total 1450 / 1450 720 / 720 780 / 780
Output Total 500 / 500
Balance 1450 / 1450 220 / 220 780 / 780
--- NOTE | 2024-12-12 12:37 | CM ---
CM following re: discharge planning.
Reviewed pt's chart, met with pty, spoke to pt's son Chris and left a message to pt's daughter Jaci.
Discharge order noted.
CM checks [facility] and [facility] denied a referral. Both [facility] and [facility] SN[facility] did not respond. Per conversation with their admissions department there is no bed available today and it is not clear whether or not they will
offer a bed.
CM spoke to pt's son Chris and his spouse, explained on discharge plan progress and pt's son stated he really wants [facility], pt was there before and he will talk to [facility] school fundraising director tomorrow. CM asked for
additional preferences of SNFs and following SNFs chosen: [facility], [facility] and [facility]. A referral to above SNFs made. Awaiting for determination.
D/C plan: Preferred SNF.
CM will follow to assist pt with discharge to a preferred SNF.
[2024-12-12 15:32] VITALS: BP 109/62
[2024-12-12] MEDS: TOPROL XL 100 MG PO (18:29)
[2024-12-12] MEDS: LIPITOR 20 MG PO (20:07)
[2024-12-12 23:27] VITALS: BP 134/55
[2024-12-13 06:00] VITALS: BMI 24.7
[2024-12-13 07:55] LABS: Hematocrit 30.5 % (37.0-47.0); Hemoglobin 9.5 g/dL (12.0-16.0); Mean Corp Hgb Conc. 31.1 g/dL (33.0-37.0); Mean Corpuscular Hgb 29.6 pg (27.0-31.0); Mean Platelet Volume 12.1 fL (7.4-10.4); Platelet Count 75 10^3/uL (130-400); Red Blood Cell Count 3.21 10^6/uL (4.20-5.40); Red Cell Dist. Width 19.3 % (11.5-14.5); White Blood Cell Count 22.8 10^3/uL (4.8-10.8)
[2024-12-13 08:06] VITALS: BP 124/53
[2024-12-13] MEDS: LASIX 20 MG PO (08:07)
[2024-12-13] MEDS: ASPIR LOW (ENTERIC COATED) 81 MG PO (08:07)
[2024-12-13] MEDS: TOPROL XL 50 MG PO (08:07)
[2024-12-13] MEDS: PURINETHOL 50 MG PO (08:07)
[2024-12-13] MEDS: NON-FORMULARY ITEM 2 UNIT PO (08:08)
[2024-12-13] MEDS: FLUSH (NSS) 1 FLUSH IV (08:08)
[2024-12-13 08:11] LABS: Blood Urea Nitrogen 31 mg/dl (7-17); Carbon Dioxide 26 mmol/L (22-30); Chloride 100 mmol/L (98-107); Estimated Creatinine Clearance 32 ml/min; Glucose 85 mg/dl (70-99); Potassium 3.9 mmol/L (3.5-5.1); Sodium 133 mmol/L (135-145); eGFR 48.03
--- NOTE | 2024-12-13 09:53 | CM ---
Addendum entered by Namrata Junior RN 12/13/24 14:47:
Spoke with Marichuy at [facility] she offered a bed today .
Auth obtained for SNF see above .
Spoke with family . They requested ambulance . Medical nec form completed.
PLAN To [facility] today
Original Note:
Spoke with wily Beatty [phone] .
Reviewed with her that [place] and [facility] had no beds.
Jaci requested [facility] .
Spoke with Liz from [facility] she needed to check on beds at am meeting and will call back.
Will need auth with [facility].
PLAN To SNF after auth
[2024-12-13 10:56] VITALS: BMI 24.7
[2024-12-13 11:47] VITALS: BP 138/55; BP 149/72; PULSE 59; PULSE 62; O2SAT 99
[2024-12-13 11:48] VITALS: BP 138/55; BP 149/72; PULSE 65; PULSE 66; O2SAT 97
[2024-12-13] MEDS: MIRALAX 17 GRAMS PO (12:13)
[2024-12-13] MEDS: SENOKOT-S 1 TABLET PO (12:14)
--- NOTE | 2024-12-13 12:24 | CM ---
[facility] accepted at [facility]# [id number]
Dr Steve Braga NPI# [id number]
TC to [id number]
Spoke with Negin
Skilled rehab approved, authorization# [id number]
Start date 12/13/24, LCD/NRD 12/17/24
Updates to p# [phone]
Ambulance auth with [facility]- auth # [id number]
--- NOTE | 2024-12-13 14:21 | W.DCSUMMARY ---
Discharge Summary
Discharge Data
Date of Admission: 12/04/24
Date of Discharge: 12/13/24
-
Pending Results: No
Hospital Course
Ms. Abraham is an 89-year-old female with medical history of A-fib (not on anticoagulation due to history of GI bleeding, on aspirin), HFpEF, CKD stage IIIa, and ulcerative colitis (on mesalamine and mercaptopurine) who presented with cough and
shortness of breath. She was found to have a large left pleural effusion. She was started on IV diuresis which was later transitioned to oral. She underwent left thoracentesis 12/06/2024 which yielded 650 cc of serosanguineous fluid. She
developed a large hematoma measuring 10 x 12 cm following thoracentesis which involved her left latissimus dorsi muscle. She has anemia due to chronic disease although her hemoglobin dropped below baseline after the development of her hematoma.
She required transfusion of 2 units PRBCs (on 12/07 and again on 12/10). Her respiratory status improved after thoracentesis. She was not hypoxic and did not require supplemental oxygen during this admission. During her hospitalization she felt
mild abdominal pain, which she reported felt similar to previous ulcerative colitis flares. No acute intra-abdominal findings were noted on CT imaging. Her home dose of mesalamine was increased for a few days but she will be discharged on her home
dose of mesalamine 1.2 g twice daily. She had transient decrease in her renal function during this admission which ultimately resolved to her baseline. Her WBC count was elevated after hematoma development which is likely a stress reaction and
possibly complicated by the flare of her inflammatory bowel disease. She will need close follow-up with her PCP and with gastroenterology after discharge. She is being discharged to rehab for ongoing physical therapy and Occupational Therapy.
Gen-AAOx3, NAD
HEENT-NC, AT, anicteric, clear oral mm
Neck-supple
CV-reg, no M, +S1/S2
Lungs-clear bilaterally
Abd-soft, NT, ND
Musculoskeletal-no edema, no deformity
Skin-warm and dry, large left flank hematoma
Neuro-grossly non-focal
Psych-calm, cooperative
Discharge Plan
-
Patient Disposition: [facility]
Discharge Diagnosis/Procedures: Acute on chronic diastolic heart failure, left pleural effusion, anemia requiring transfusions secondary to left chest wall hematoma
Diet: As tolerated
Activity: With assistance and As tolerated
Other Services: PT and OT
Activity Restrictions/Additional Instructions:
Ms. Abraham is an 89-year-old female with medical history of A-fib (not on anticoagulation due to history of GI bleeding, on aspirin), HFpEF, CKD stage IIIa, and ulcerative colitis (on mesalamine and mercaptopurine) who presented with cough and
shortness of breath. She was found to have a large left pleural effusion. She was started on IV diuresis which was later transitioned to oral. She underwent left thoracentesis 12/06/2024 which yielded 650 cc of serosanguineous fluid. She
developed a large hematoma measuring 10 x 12 cm following thoracentesis which involved her left latissimus dorsi muscle. She has anemia due to chronic disease although her hemoglobin dropped below baseline after the development of her hematoma.
She required transfusion of 2 units PRBCs (on 12/07 and again on 12/10). Her respiratory status improved after thoracentesis. She was not hypoxic and did not require supplemental oxygen during this admission. During her hospitalization she felt
mild abdominal pain, which she reported felt similar to previous ulcerative colitis flares. No acute intra-abdominal findings were noted on CT imaging. Her home dose of mesalamine was increased for a few days but she will be discharged on her home
dose of mesalamine 1.2 g twice daily. She had transient decrease in her renal function during this admission which ultimately resolved to her baseline. Her WBC count was elevated after hematoma development which is likely a stress reaction and
possibly complicated by the flare of her inflammatory bowel disease. She will need close follow-up with her PCP and with gastroenterology after discharge. She is being discharged to rehab for ongoing physical therapy and Occupational Therapy.
Instructions: *[facility] Heart Failure Instructions
Referrals:
Omar Lincoln MD [Active] - 01/05/25 10:40 am (You have cardiology follow-up with Dr. Lincoln on January 05 at 10:40 AM at [facility] in [place]. If you are unable to make this appointment please call [phone] to
reschedule)
Tony Carrillo MD [Family Provider] -
Prescriptions:
New
sennosides-docusate sodium 8.6-50 mg Tablet
1 tab PO BID Qty: 10 0RF
Rx Instructions:
hold for loose or frequent stools
Continued
simvastatin 40 MG tablet
40 mg PO HS
acetaminophen 325 mg Tablet
650 mg PO Q8HPRN PRN (Reason: mild pain)
aspirin 81 mg Tablet,Delayed Release (Dr/Ec)
81 mg PO DAILY
mesalamine 1.2 gram Tablet,Delayed Release (Dr/Ec)
1.2 g PO BID
Patient Comments:
12/04/24: Patient wants to use own medication of mesalamine
furosemide 20 mg Tablet
20 mg PO DAILY Qty: 30 0RF
metoprolol succinate 50 mg Tablet Extended Release 24 Hr
50 mg PO DAILY
metoprolol succinate 50 mg Tablet Extended Release 24 Hr
100 mg PO QPM
mercaptopurine 50 mg Tablet
50 mg PO BID
Discharge Orders:
Discharge Patient (As Directed); Ordered 12/12/24
Ordered By: Aron Benjamin
Discharge Date and Time
Print Language: UKRAINIAN
[2024-12-13 15:12] VITALS: BP 126/64
--- NOTE | 2024-12-13 16:41 | PTCARENOTE ---
Pt AAO x3, QUIGLEY; OOB to BSC/chair with assist x1; uses walker at times. Pt occ c/o 'vertigo with OOB activity. Fall prec maintained. VSS. On room air- pulse ox 95%, no SOB noted. Abd large, soft, maryuri PO. Void son BSC without difficulty. Pt wit
large ecchymotic areas Lt flank and bilat sacrum; multiple scattered bruised on arms/legs; large bruised areas LUE. Resting quietly at present; for transfer to [facility].
== END 2024-12-13 17:34 | DRG 291 ==
LOC: 4 EAST ACU 18:08
PROVIDERS: Internal Medicine; Nurse Practitioner Family; Physician Assistant; Radiology Vascular & Interventional Radiology; Registered Nurse; ADMITTING PHYSICIAN Internal Medicine; ATTENDING PHYSICIAN Internal Medicine; CONSULT PHYSICIAN Internal Medicine Cardiovascular Disease; EMERGENCY PHYSICIAN Student in an Organized Health Care Education/Training Program; FAMILY PHYSICIAN Family Medicine
PROC: 0W9B3ZX Drainage of Left Pleural Cavity, Percutaneous Approach, Diagnostic (ICD-10-PCS; 2024-12-06)
PROC: 30233N1 Transfusion of Nonautologous Red Blood Cells into Peripheral Vein, Percutaneous Approach (ICD-10-PCS; 2024-12-07)
DX: I13.0 Hypertensive heart and chronic kidney disease with heart failure and stage 1 through stage 4 chronic kidney disease, or unspecified chronic kidney disease (principal); I50.33 Acute on chronic diastolic (congestive) heart failure; J18.9 Pneumonia, unspecified organism; K57.33 Diverticulitis of large intestine without perforation or abscess with bleeding; I48.19 Other persistent atrial fibrillation; J98.11 Atelectasis; K51.911 Ulcerative colitis, unspecified with rectal bleeding; D62 Acute posthemorrhagic anemia; E87.1 Hypo-osmolality and hyponatremia; J95.830 Postprocedural hemorrhage of a respiratory system organ or structure following a respiratory system procedure; D63.8 Anemia in other chronic diseases classified elsewhere; D69.6 Thrombocytopenia, unspecified; Z66 Do not resuscitate; Z87.891 Personal history of nicotine dependence; Z87.11 Personal history of peptic ulcer disease; Z90.49 Acquired absence of other specified parts of digestive tract; K80.20 Calculus of gallbladder without cholecystitis without obstruction; N18.31 Chronic kidney disease, stage 3a; E87.6 Hypokalemia; E78.00 Pure hypercholesterolemia, unspecified; I5A Non-ischemic myocardial injury (non-traumatic)
CPT/HCPCS: 88305; 32555; 71045; 71046; 71250; 74176; 80048; 80053; 80061; 82150; 82945; 82947; 82962; 83615; 83880; 83986; 84155; 84157; 84443; 84478; 84484; 85025; 85027; 86850; 86900; 86901; 86920; 87015; 87040; 87070; 87102; 87116; 87205; 87206; 87324; 87449; 87502; 87811; 88112; 88342; 89051; 93005; 93306; 96374; 97110; 97116; 97163; 97166; 97530; 97535; 99285; P9016

== ENCOUNTER 2024-12-27 01:07 | Emergency (ER) | payer OTHER, SELFPAY ==
--- NOTE | 2024-12-27 01:34 | ED.GENMED ---
History of Present Illness
General
Chief Complaint: Abdominal Pain
Source: patient, records and family
Exam Limitations: clinical condition
Time Seen by Provider: 12/27/24 01:12
History of Present Illness
History of Present Illness:
89-year-old female relatively sudden onset of abdominal pain vomiting vomiting blood an hour or 2 prior to ER arrival. Symptoms moderate to severe in nature.
Past History
Past History
ED Past Medical History: Arrthythmia (Atrial fibrillation), HTN, Hypercholesterolemia, Other (DVT, GIB, ulcerative colitis, chronic kidney disease, anemia) and Other (Pleural effusion)
ED Past Surgical History: Bowel resection
Social History
Tobacco: Non-smoker
Alcohol: None
Living: with family
Employment: Retired
Family History
Family History: Other (pancreatic cancer, CHF)
Review of Systems
Review of Systems
Unable to obtain full review of systems at this time due to: due to acuity
All Other Systems: Not applicable
Phy Exam
Physical Exam
Physical Exam:
GENERAL: Alert. Elderly and frail. Anxious. Pale. Dry heaving on arrival
EYE: Orbits normal.
NECK: Supple
ENT: Pharynx without erythema
CARDIAC: Irregular irregular
LUNGS: Mild tachypnea with rhonchi in the bases
ABDOMEN: Distended. No bowel sounds. Diffusely tender. Some rebound and guarding
NEUROLOGICAL: Alert. Slight slurred speech. Grossly nonfocal
SKIN: Pale. Cool. Areas of ecchymosis to the upper extremities.
MUSCULOSKELETAL: Significant edema to the lower extremities
PSYCH: Anxious
Course
Orders/Labs/Results
Orders:
Orders
12/27/24 01:10
Electrocardiogram (*1) Urgent
Reason for Study: Abdominal Pain
Cardiac Monitoring- Treatment ONCE
EKG- Treatment ONCE
IV Insert/Care/Rem.- Treatment PRN
O2 Therapy [RESP] Urgent
Titrate/Wean O2 to maintain O2 sat greater than (%): 93
Special Instructions: MAINTAIN CONTINOUS O2 SATS > OR = 93%
Pulse Ox/spot Check [RESP] Urgent
Quantity: 1
Special Instructions: ON ROOM AIR
12/27/24 01:13
Pantoprazole [Protonix IV] 80 mg IV NOW STA
12/27/24 01:37
Complete Blood Count/With Diff Urgent
Comprehensive Metabolic Panel Urgent
Lipase Urgent
Manual Differential Urgent
Abnormal Lab Results
12/27/24
01:37
WBC 47.2 H* 10^3/uL
(4.8-10.8)
RBC 2.06 L 10^6/uL
(4.20-5.40)
Hgb 6.2 L* g/dL
(12.0-16.0)
Hct 20.4 L* %
(37.0-47.0)
MCHC 30.4 L g/dL
(33.0-37.0)
RDW 19.7 H %
(11.5-14.5)
Plt Count 79 L 10^3/uL
(130-400)
MPV 13.3 H fL
(7.4-10.4)
Abs Neuts (Manual) 11.8 H 10^3/uL
(1.4-6.5)
Segmented Neutrophils 21 L %
(42-75)
Band Neutrophils 4 H %
(0-3)
Lymphocytes (Manual) 11 L %
(20-51)
Monocytes (Manual) 62 H %
(2-9)
Sodium 134 L mmol/L
(135-145)
Carbon Dioxide 12 L* mmol/L
(22-30)
BUN 35 H mg/dl
(7-17)
Creatinine 1.4 H mg/dL
(0.6-1.0)
Glucose 177 H mg/dl
(70-99)
Calcium 7.7 L mg/dl
(8.4-10.2)
Total Bilirubin 1.7 H mg/dl
(0.2-1.3)
AST 61 H U/L
(14-36)
Alkaline Phosphatase 162 H U/L
(38-126)
Total Protein 5.0 L g/dl
(6.3-8.2)
Albumin 2.2 L g/dl
(3.5-5.0)
Lipase 522 H U/L
(23-300)
12/27/24 01:37
12/27/24 01:37
Vital Signs
Initial and Last Documented VS:
Initial Vital Signs
Pulse Resp
114 35
12/27/24 01:09 12/27/24 01:09
Last Documented Vital Signs
Pulse Resp BP Pulse Ox
50 13 69/23 95
12/27/24 01:45 12/27/24 01:45 12/27/24 01:43 12/27/24 01:13
*EKG
Interpreted by ED Provider?: Yes
Interpretation: abnormal
Comparison EKG: changes noted
Heart Rate: 101
Rate: tachycardiac
Rhythm: a-fib
[place]: normal axis
Interval: normal interval
QRS Pattern: low voltage
Ischemia: non-specific ST changes
*Berry Picker Machine Operator Interpretation
Rate: bradycardiac
Interpretation: abnormal
Heart Rate: 80
Rhythm: a-fib
*Critical Care Note
Total Time (30-74mins, 75-104mins- exclusive of procedures): 50
Data Reviewed
Review of Other/Old Records Reveals: Labs, Records, Radiology Studies, Testing and Discharge Summary
Update Note
Update Note:
0130..... Patient critically ill. Pale lethargic. Some difficulty breathing. Discussed with patient's daughter. Made aware that she is critically ill. Differential large at this point but would include bowel obstruction perforated viscus
ischemic bowel. Daughter feels she is a DNR. However did ask us to talk to the patient who is alert at this time. Patient clearly states she does not want intubation aggressive therapy CPR etc. We will honor her wishes. It was explained to the
daughter that her current condition is likely acutely life-threatening
0150.... Patient unresponsive. Decreased respirations. Hypotensive. Hemoglobin 6.2. Daughter updated. No aggressive management. No intubation or CPR. At this time we will keep patient comfortable
0200.... Patient at 01 56. No pulse. No spontaneous respirations. Family updated. Unable to get into the certificate registry. Cruise Agent notified
ED Attending Note
-
Portions of this chart may have been created with voice recognition software.� Occasional wrong word or��sound alike� substitutions may have occurred due to the inherent limitations of voice recognition software.
Discharge Plan
Departure
Patient Disposition:
Date of Disposition: 12/27/24
Time of Disposition: 02:16
Discharge Problem:
Cardiopulmonary arrest, Severe anemia, GI bleed, Acute surgical abdomen
Prescriptions:
No Action
simvastatin 40 MG tablet
40 mg PO HS
acetaminophen 325 mg Tablet
650 mg PO Q8HPRN PRN (Reason: mild pain)
aspirin 81 mg Tablet,Delayed Release (Dr/Ec)
81 mg PO DAILY
mesalamine 1.2 gram Tablet,Delayed Release (Dr/Ec)
1.2 g PO BID
Patient Comments:
12/04/24: Patient wants to use own medication of mesalamine
furosemide 20 mg Tablet
20 mg PO DAILY Qty: 30 0RF
metoprolol succinate 50 mg Tablet Extended Release 24 Hr
50 mg PO DAILY
metoprolol succinate 50 mg Tablet Extended Release 24 Hr
100 mg PO QPM
mercaptopurine 50 mg Tablet
50 mg PO BID
sennosides-docusate sodium 8.6-50 mg Tablet
1 tab PO BID Qty: 10 0RF
Rx Instructions:
hold for loose or frequent stools
Referrals:
UNKNOWN - PT DOES,NOT KNOW [Family Provider] -
Interventions
Interventions:
*Risk Screen - Suicide Last Done: 12/27/24 01:13
*General Assessment Last Done: 12/27/24 01:13
*Neglect/Abuse Screening Last Done: 12/27/24 01:13
ED- Fall Risk Assessment Last Done: 12/27/24 01:13
*ED COVID-19 Vaccine History Last Done: 12/27/24 01:13
*Nursing Disposition Last Done: 12/27/24 04:20
ZE-Ivedfc-[id number] Assessment Last Done: 12/27/24 01:20
Discharge Date and Time
Discharge Date/Time: 12/27/24 01:56
Print Language: CUBAN
[2024-12-27 01:39] VITALS: BP 69/23
[2024-12-27 01:43] VITALS: BP 69/23
[2024-12-27 01:44] LABS: Hematocrit 20.4 % (37.0-47.0); Hemoglobin 6.2 g/dL (12.0-16.0); Mean Corp Hgb Conc. 30.4 g/dL (33.0-37.0); Mean Corpuscular Hgb 30.1 pg (27.0-31.0); Mean Platelet Volume 13.3 fL (7.4-10.4); Platelet Count 79 10^3/uL (130-400); Red Blood Cell Count 2.06 10^6/uL (4.20-5.40); Red Cell Dist. Width 19.7 % (11.5-14.5); White Blood Cell Count 47.2 10^3/uL (4.8-10.8)
[2024-12-27 02:02] LABS: AST (SGOT) 61 U/L (14-36); Albumin 2.2 g/dl (3.5-5.0); Alkaline Phosphatase 162 U/L (38-126); Blood Urea Nitrogen 35 mg/dl (7-17); Calcium 7.7 mg/dl (8.4-10.2); Carbon Dioxide 12 mmol/L (22-30); Chloride 102 mmol/L (98-107); Estimated Creatinine Clearance 26 ml/min; Glucose 177 mg/dl (70-99); Lipase 522 U/L (23-300); Potassium 4.4 mmol/L (3.5-5.1); Sodium 134 mmol/L (135-145); Total Bilirubin 1.7 mg/dl (0.2-1.3); eGFR 35.96
[2024-12-27 02:03] LABS: ALT (SGPT) 31 U/L (0-35)
[2024-12-27 02:08] LABS: Absolute Neutrophils -Man Diff 11.8 10^3/uL (1.4-6.5); Anisocytosis 2+; Band Neutrophils 4 % (0-3); Lymphocytes 11 % (20-51); Monocytes 62 % (2-9); Myelocytes 2 % (-); Normal RBC Morphology No; Nucleated Red Blood Cells 12 (-); Platelets Checked Yes; Segmented Neutrophils 21 % (42-75)
[2024-12-27 02:09] LABS: Hypochromasia 1+; Macrocytosis 1+; Target Cells Occasional; Total Cells Counted 100
== END 2024-12-27 01:56 | disposition expired ==
LOC: EMR 01:07
PROVIDERS: EMERGENCY PHYSICIAN Emergency Medicine
DX: I46.9 Cardiac arrest, cause unspecified (principal); K92.2 Gastrointestinal hemorrhage, unspecified; D64.9 Anemia, unspecified; R10.0 Acute abdomen; I12.9 Hypertensive chronic kidney disease with stage 1 through stage 4 chronic kidney disease, or unspecified chronic kidney disease; N18.9 Chronic kidney disease, unspecified; E78.00 Pure hypercholesterolemia, unspecified; I48.91 Unspecified atrial fibrillation; Z86.718 Personal history of other venous thrombosis and embolism; Z66 Do not resuscitate
CPT/HCPCS: 99284; 80053; 83690; 85025; 93005